=== PATIENT | female | born 1955 | race African-American/Black ===

== ENCOUNTER 2016-08-22 20:55 | Emergency (ER) | payer MEDICARE, MEDICAID ==
[~2016-08-22] VITALS: Ht 160 cm; Wt 65.8 kg
[~2016-08-22 20:55] MED LIST: AMLODIPINE 10MG PO; CINA30 PO; CINA60 PO; FOLI1CAP6 PO; FOLI1TAB63 PO; LEVO100T9 PO; LEVOTHYROXINE PO; LORA0.5T2 PO; LORAZEPAM 1 MG PO; NEPVIT PO; OMEPRAZOLE 20MG PO; PROP80CA2 PO; SEVE800T PO; VIAGRA PO; WARF5TAB73 PO
[2016-08-22] MEDS ORDERED: LORAZEPAM 2MG/ML CPJ IV ONE (23:15)
[2016-08-22 23:46] LABS: DIFFERENTIAL COMMENT 0; EOSINOPHILS % 2.2 % (0.0-5.0); HEMATOCRIT. 30.1 % (36.0-48.0); HEMOGLOBIN. 10.1 g/dL (12.0-16.0); MEAN CORPUSCULAR HEMOGLOBIN 34.3 pg (28.0-32.0); MEAN CORPUSCULAR HGB CONC 33.6 g/dL (31.0-37.0); MEAN CORPUSCULAR VOLUME 102.2 fL (81.0-99.0); MEAN PLATELET VOLUME 7.9 fl (7.4-10.4); MONOCYTES % 13.6 % (2.0-8.0); NEUTROPHILS % 63.2 % (40.0-76.0); PLATELET 249 x1000/uL (130-400); RED BLOOD CELL COUNT 2.94 mill/uL (4.2-5.4); RED CELL DISTRIBUTION WIDTH 16.2 % (11.6-14.6); WHITE BLOOD COUNT 5.2 x1000/uL (4.5-11.0)
[2016-08-23 00:04] LABS: ALANINE AMINOTRANSFERASE 19 IU/L (13-61); ALBUMIN 3.5 g/dL (3.4-5.0); ANION GAP 16; CALCIUM 7.8 mg/dL (8.5-10.1); CARBON DIOXIDE 28 mEq/L (21-32); CHLORIDE 98 mEq/L (98-107); INDEX HEMOLYSI 1 (1-3); INDEX ICTERIC 1 (1-4); INDEX LIPEMIC 1 (1-3); TROPONIN I 0.04 ng/mL (0.00-0.04); UREA NITROGEN BLOOD 30 mg/dL (7-21); eGFR 5 mL/min (>60)
[2016-08-23] MEDS ORDERED: LORAZEPAM 1MG TABLET PO ONE (02:15)
[2016-08-23 04:27] VITALS: BP 146/68
== END 2016-08-23 04:45 | disposition home or self-care (01) ==
LOC: ER 20:56
DX: F41.9 Anxiety disorder, unspecified (principal); I12.9 Hypertensive chronic kidney disease with stage 1 through stage 4 chronic kidney disease, or unspecified chronic kidney disease; N18.9 Chronic kidney disease, unspecified; Z88.0 Allergy status to penicillin; Z88.8 Allergy status to other drugs, medicaments and biological substances; Z79.01 Long term (current) use of anticoagulants; Z79.899 Other long term (current) drug therapy
CPT/HCPCS: 36415; 71010; 80053; 84484; 85025; 93005; 96374; 99285; J2060

== ENCOUNTER 2016-08-28 10:59 | Emergency (ER) | payer MEDICARE, MEDICAID ==
[~2016-08-28] VITALS: Ht 170.2 cm; Wt 68.0 kg
[2016-08-28 12:29] LABS: BASOPHILS % 0.9 % (0.0-2.0); EOSINOPHILS % 2.1 % (0.0-5.0); HEMATOCRIT. 33.3 % (36.0-48.0); HEMOGLOBIN. 11.1 g/dL (12.0-16.0); MEAN CORPUSCULAR HEMOGLOBIN 34.2 pg (28.0-32.0); MEAN CORPUSCULAR HGB CONC 33.3 g/dL (31.0-37.0); MEAN CORPUSCULAR VOLUME 102.9 fL (81.0-99.0); MEAN PLATELET VOLUME 7.9 fl (7.4-10.4); MONOCYTES % 10.1 % (2.0-8.0); NEUTROPHILS % 68.9 % (40.0-76.0); PLATELET 246 x1000/uL (130-400); RED BLOOD CELL COUNT 3.24 mill/uL (4.2-5.4); RED CELL DISTRIBUTION WIDTH 17.1 % (11.6-14.6)
[2016-08-28 12:32] LABS: BG BASE EXCESS 0.4 mmol/L (-2.0-2.0); BG CARBOXYHEMOGLOBIN 0.1 % (0.5-1.5); BG DEOXYHEMOGLOBIN 2.3 % (0.0-5.0); BG FRACTION INSPIRED OXYGEN 21; BG HCO3 ACT 22.7 mmol/L (22.0-26.0); BG METHEMOGLOBIN 0.3 % (0.0-1.5); BG OXYGEN SATURATION 97.7 % (92.0-98.5); BG OXYHEMOGLOBIN 97.3 % (94.0-97.0); BG PCO2 29.5 mmHg (35.0-45.0); BG PH 7.505 (7.350-7.450); BG PO2 106.4 mmHg (75.0-100.0); BG SAMPLE SITE LEFT RADIAL; BG TOTAL HEMOGLOBIN 11.8 g/dL (12.0-18.0); BG VENT MODE ROOM AIR
[2016-08-28 12:34] LABS: INR 2.2
[2016-08-28 12:38] LABS: DIFFERENTIAL COMMENT 1
[2016-08-28 12:39] LABS: ALANINE AMINOTRANSFERASE 28 IU/L (13-61); ALBUMIN 3.9 g/dL (3.4-5.0); ANION GAP 18; CALCIUM 8.1 mg/dL (8.5-10.1); CARBON DIOXIDE 27 mEq/L (21-32); CHLORIDE 97 mEq/L (98-107); INDEX HEMOLYSI 1 (1-3); INDEX ICTERIC 1 (1-4); INDEX LIPEMIC 1 (1-3); UREA NITROGEN BLOOD 34 mg/dL (7-21); eGFR 5 mL/min (>60)
[2016-08-28 12:43] LABS: TROPONIN I 0.04 ng/mL (0.00-0.04)
[2016-08-28 12:54] LABS: NT PRO B-TYPE NATRIURETIC PEP 91056 pg/mL (5-125)
[2016-08-28 14:20] VITALS: BP 130/88
== END 2016-08-28 16:51 | disposition home or self-care (01) ==
LOC: ER 11:06
DX: F45.8 Other somatoform disorders (principal); Z79.899 Other long term (current) drug therapy; Z88.0 Allergy status to penicillin; Z88.8 Allergy status to other drugs, medicaments and biological substances; Z79.01 Long term (current) use of anticoagulants; I12.9 Hypertensive chronic kidney disease with stage 1 through stage 4 chronic kidney disease, or unspecified chronic kidney disease; N18.9 Chronic kidney disease, unspecified; Z99.2 Dependence on renal dialysis
CPT/HCPCS: 36415; 36600; 71010; 80053; 82375; 82805; 83880; 84484; 85025; 85610; 93005; 99285

== ENCOUNTER 2016-08-31 19:03 | Inpatient (IN) | payer MEDICARE, MEDICAID ==
[~2016-08-31] VITALS: Ht 160 cm; Wt 63.5 kg
[2016-08-31 20:45] LABS: BASOPHILS % 1.3 % (0.0-2.0); EOSINOPHILS % 2.4 % (0.0-5.0); HEMATOCRIT. 35.7 % (36.0-48.0); HEMOGLOBIN. 11.7 g/dL (12.0-16.0); LYMPHOCYTES % 15.9 % (20.0-50.0); MEAN CORPUSCULAR HEMOGLOBIN 34.5 pg (28.0-32.0); MEAN CORPUSCULAR HGB CONC 32.7 g/dL (31.0-37.0); MEAN CORPUSCULAR VOLUME 105.3 fL (81.0-99.0); MEAN PLATELET VOLUME 8.1 fl (7.4-10.4); MONOCYTES % 9.2 % (2.0-8.0); NEUTROPHILS % 71.2 % (40.0-76.0); PLATELET 275 x1000/uL (130-400); RED BLOOD CELL COUNT 3.39 mill/uL (4.2-5.4); RED CELL DISTRIBUTION WIDTH 18.7 % (11.6-14.6); WHITE BLOOD COUNT 4.3 x1000/uL (4.5-11.0)
[2016-08-31 20:51] LABS: CHLORIDE 97 mEq/L (98-107); INDEX HEMOLYSI 1 (1-3); INDEX ICTERIC 1 (1-4); INDEX LIPEMIC 1 (1-3)
[2016-08-31 20:52] LABS: INR 1.8; PROTHROMBIN TIME 19.1 sec
[2016-08-31 20:55] LABS: ALBUMIN 3.7 g/dL (3.4-5.0); ANION GAP 25; CARBON DIOXIDE 20 mEq/L (21-32); UREA NITROGEN BLOOD 66 mg/dL (7-21)
[2016-08-31 20:58] LABS: DIFFERENTIAL COMMENT 1
[2016-08-31 21:00] LABS: ALANINE AMINOTRANSFERASE 27 IU/L (13-61); TROPONIN I 0.02 ng/mL (0.00-0.04); eGFR 3 mL/min (>60)
[2016-08-31 21:07] LABS: LACTIC ACID 3.1 mmol/L (0.4-2.0)
[2016-09-01] VITALS (7 sets, daily range): BP systolic 109–145; BP diastolic 50–80
[2016-09-01] MEDS ORDERED: CLONIDINE 0.1MG TABLET PO PRN (00:45)
[2016-09-01] MEDS ORDERED: HYDROCODONE/ACETAMINOPHEN 5/325MG TABLET PO PRN (00:45)
[2016-09-01] MEDS ORDERED: ACETAMINOPHEN 650MG SUPP PR PRN (00:45)
[2016-09-01] MEDS ORDERED: ACETAMINOPHEN 325MG TABLET PO PRN (00:45)
[2016-09-01] MEDS ORDERED: ONDANSETRON HCL 4MG/2ML VIAL IV PRN (00:45)
[2016-09-01] MEDS ORDERED: NA PHOS,M-B/NA PHOS,DI-BA ENEMA 118ML PR PRN (00:45)
[2016-09-01] MEDS ORDERED: GUAIFENESIN 200MG/10ML SUGAR FREE UDC PO PRN (00:45)
[2016-09-01] MEDS ORDERED: DIPHENHYDRAMINE 50MG/ML VIAL IV PRN (00:45)
[2016-09-01] MEDS ORDERED: MAGNESIUM/ALUMINUM HYDROXIDE/SIMETHICONE 30ML UDC PO PRN (00:45)
[2016-09-01] MEDS ORDERED: IPRATROPIUM/ALBUTEROL 0.5-3(2.5)MG/3ML NEB INH PRN (00:45)
[2016-09-01] MEDS ORDERED: DOCUSATE SODIUM 100MG CAPSULE PO PRN (00:45)
[2016-09-01] MEDS ORDERED: REVATIO PO (05:26)
[2016-09-01] MEDS: SODIUM CHLORIDE 0.9% INJ 3ML FLUSH IVF SCH ×3 (06:33→23:34)
[2016-09-01 09:25] LABS: CREATINE KINASE MB FRACTION 4.7 ng/mL (0.5-3.6); TROPONIN I 0.02 ng/mL (0.00-0.04)
[2016-09-01] MEDS ORDERED: CYANOCOBALAMIN 1000MCG/ML VIAL IM SCH (12:45)
[2016-09-01] MEDS: LORAZEPAM 2MG/ML CPJ IV PRN ×2 (13:59→20:19)
[2016-09-01] MEDS: FOLIC ACID/VITAMIN B COMP W-C TABLET PO SCH (13:59)
[2016-09-01] MEDS: LEVOTHYROXINE SODIUM 125MCG TABLET PO SCH (13:59)
[2016-09-01] MEDS ORDERED: WARFARIN SODIUM 5MG TABLET PO SCH (18:00)
[2016-09-01 23:29] LABS: CREATINE KINASE MB FRACTION 4.3 ng/mL (0.5-3.6); TROPONIN I 0.04 ng/mL (0.00-0.04)
[2016-09-02] VITALS (7 sets, daily range): BP systolic 120–148; BP diastolic 65–88
[2016-09-02 05:28] LABS: INR 2.4; PROTHROMBIN TIME 24.7 sec
[2016-09-02 05:34] LABS: BASOPHILS % 1.2 % (0.0-2.0); EOSINOPHILS % 1.8 % (0.0-5.0); HEMATOCRIT. 33.9 % (36.0-48.0); HEMOGLOBIN. 11.1 g/dL (12.0-16.0); MEAN CORPUSCULAR HEMOGLOBIN 34.5 pg (28.0-32.0); MEAN CORPUSCULAR HGB CONC 32.7 g/dL (31.0-37.0); MEAN CORPUSCULAR VOLUME 105.4 fL (81.0-99.0); MONOCYTES % 10.4 % (2.0-8.0); NEUTROPHILS % 71.6 % (40.0-76.0); PLATELET 236 x1000/uL (130-400); RED BLOOD CELL COUNT 3.22 mill/uL (4.2-5.4); RED CELL DISTRIBUTION WIDTH 18.3 % (11.6-14.6); WHITE BLOOD COUNT 5.1 x1000/uL (4.5-11.0)
[2016-09-02 06:01] LABS: CHLORIDE 101 mEq/L (98-107); INDEX HEMOLYSI 2 (1-3); INDEX ICTERIC 1 (1-4); INDEX LIPEMIC 1 (1-3)
[2016-09-02] MEDS: LEVOTHYROXINE SODIUM 125MCG TABLET PO SCH (06:11)
[2016-09-02] MEDS: SODIUM CHLORIDE 0.9% INJ 3ML FLUSH IVF SCH ×3 (06:11→21:57)
[2016-09-02 06:15] LABS: ALANINE AMINOTRANSFERASE 26 IU/L (13-61); ALBUMIN 3.5 g/dL (3.4-5.0); ANION GAP 18; CALCIUM 8.1 mg/dL (8.5-10.1); CARBON DIOXIDE 23 mEq/L (21-32); HDL CHOLESTEROL 24 mg/dL (40-59); LDL CHOLESTEROL 80 mg/dL (5-100); TRIGLYCERIDE 118 mg/dL (0-150); UREA NITROGEN BLOOD 45 mg/dL (7-21); eGFR 4 mL/min (>60)
[2016-09-02 06:37] LABS: DIFFERENTIAL COMMENT 1
[2016-09-02 07:47] LABS: HEPATITIS B CORE AB IGM NEGATIVE; HEPATITIS B SURFACE AB 12.2 mIU/mL
[2016-09-02] MEDS: FOLIC ACID/VITAMIN B COMP W-C TABLET PO SCH (08:22)
[2016-09-02 09:42] LABS: INDEX HEMOLYSI 2 (1-3); INDEX ICTERIC 1 (1-4); INDEX LIPEMIC 1 (1-3); IRON 183 ug/dL (50-175); TOTAL IRON BINDING CAPACITY 231 ug/dL (250-450)
[2016-09-02] MEDS: LORAZEPAM 2MG/ML CPJ IV PRN (13:51)
[2016-09-02] MEDS ORDERED: WARFARIN SODIUM 2.5MG TABLET PO NR (18:00)
[2016-09-02] MEDS ORDERED: SERTRALINE HCL 25MG TABLET PO SCH (18:15)
[2016-09-03 04:00] VITALS: BP 115/78
[2016-09-03 05:50] LABS: BASOPHILS % 0.9 % (0.0-2.0); DIFFERENTIAL COMMENT 0; EOSINOPHILS % 1.6 % (0.0-5.0); HEMATOCRIT. 33.1 % (36.0-48.0); LYMPHOCYTES % 14.5 % (20.0-50.0); MEAN CORPUSCULAR HEMOGLOBIN 34.5 pg (28.0-32.0); MEAN CORPUSCULAR HGB CONC 33.2 g/dL (31.0-37.0); MEAN CORPUSCULAR VOLUME 103.9 fL (81.0-99.0); MEAN PLATELET VOLUME 8.1 fl (7.4-10.4); MONOCYTES % 9.6 % (2.0-8.0); NEUTROPHILS % 73.4 % (40.0-76.0); PLATELET 179 x1000/uL (130-400); RED BLOOD CELL COUNT 3.19 mill/uL (4.2-5.4); RED CELL DISTRIBUTION WIDTH 19.4 % (11.6-14.6); WHITE BLOOD COUNT 5.7 x1000/uL (4.5-11.0)
[2016-09-03 05:52] LABS: INR 1.9; PROTHROMBIN TIME 19.6 sec
[2016-09-03] MEDS: SODIUM CHLORIDE 0.9% INJ 3ML FLUSH IVF SCH (06:26)
[2016-09-03] MEDS: LEVOTHYROXINE SODIUM 125MCG TABLET PO SCH (06:26)
[2016-09-03 06:54] LABS: CALCIUM 8.5 mg/dL (8.5-10.1)
[2016-09-03 08:00] VITALS: BP 142/79
[2016-09-03] MEDS: FOLIC ACID/VITAMIN B COMP W-C TABLET PO SCH (08:37)
[2016-09-03 12:00] VITALS: BP 121/78
[2016-09-03] MEDS ORDERED: WARFARIN SODIUM 4MG TABLET PO NR (18:00)
== END 2016-09-03 15:25 | disposition home or self-care (01) | DRG 291 ==
LOC: ER 19:04 → 8WST 09-01 00:31
PROVIDERS: ADMIT Family Medicine; ATTEND Family Medicine
PROC: 5A1D60Z (ICD-10-PCS; principal; 2016-09-01)
DX: I13.2 Hypertensive heart and chronic kidney disease with heart failure and with stage 5 chronic kidney disease, or end stage renal disease (principal); N18.6 End stage renal disease; N25.81 Secondary hyperparathyroidism of renal origin; R18.8 Other ascites; E87.2 Acidosis; D63.8 Anemia in other chronic diseases classified elsewhere; E03.9 Hypothyroidism, unspecified; E53.8 Deficiency of other specified B group vitamins; F41.9 Anxiety disorder, unspecified; G25.81 Restless legs syndrome; I27.2 Other secondary pulmonary hypertension; I50.9 Heart failure, unspecified; Z99.2 Dependence on renal dialysis; G89.29 Other chronic pain; K74.60 Unspecified cirrhosis of liver; F32.9 Major depressive disorder, single episode, unspecified; I48.2 Chronic atrial fibrillation; E88.09 Other disorders of plasma-protein metabolism, not elsewhere classified; D53.9 Nutritional anemia, unspecified; F50.89 Other specified eating disorder; Z79.01 Long term (current) use of anticoagulants; Z88.0 Allergy status to penicillin; Z88.8 Allergy status to other drugs, medicaments and biological substances; Z79.899 Other long term (current) drug therapy
CPT/HCPCS: 36415; 71010; 74176; 80048; 80053; 80061; 82550; 82553; 82728; 83036; 83540; 83550; 83605; 84443; 84484; 85025; 85610; 86705; 86706; 93005; 93306; 96374; 99285; J1200; J2060; J3420; J7030

== ENCOUNTER 2016-11-01 11:27 | Inpatient (IN) | payer MEDICARE, MEDICAID ==
[~2016-11-01] VITALS: Ht 161.3 cm; Wt 67.6 kg
[~2016-11-01 11:27] MED LIST changes: -AMLODIPINE 10MG PO; -CINA30 PO; -LEVOTHYROXINE PO; -LORA0.5T2 PO; -NEPVIT PO; +REVATIO PO
[2016-11-01] MEDS ORDERED: NITROGLYCERIN OINT 1GM/INCH UDPKT TD ONE (13:00)
[2016-11-01] MEDS ORDERED: FUROSEMIDE 40MG/4ML VIAL IV ONE (13:00)
[2016-11-01 13:11] LABS: HEMATOCRIT. 31.9 % (36.0-48.0); HEMOGLOBIN. 10.6 g/dL (12.0-16.0); MEAN CORPUSCULAR HEMOGLOBIN 31.9 pg (28.0-32.0); MEAN CORPUSCULAR VOLUME 95.8 fL (81.0-99.0); MEAN PLATELET VOLUME 7.9 fl (7.4-10.4); PLATELET 278 x1000/uL (130-400); RED BLOOD CELL COUNT 3.33 mill/uL (4.2-5.4); RED CELL DISTRIBUTION WIDTH 17.3 % (11.6-14.6)
[2016-11-01 13:20] LABS: CARBON DIOXIDE 23 mEq/L (21-32); CHLORIDE 95 mEq/L (98-107); ETHANOL BLOOD < 10 mg/dL
[2016-11-01 13:26] LABS: D-DIMER 0.35 mg/L FEU (<0.50)
[2016-11-01 13:34] LABS: TROPONIN I 0.05 ng/mL (0.00-0.04)
[2016-11-01 13:58] LABS: PLATELET ESTIMATE NORMAL
[2016-11-01 14:01] LABS: BG CARBOXYHEMOGLOBIN 0.1 % (0.5-1.5); BG DEOXYHEMOGLOBIN 5.7 % (0.0-5.0); BG FRACTION INSPIRED OXYGEN 21; BG HCO3 ACT 22.8 mmol/L (22.0-26.0); BG OXYGEN SATURATION 94.3 % (92.0-98.5); BG OXYHEMOGLOBIN 94.2 % (94.0-97.0); BG PCO2 31.2 mmHg (35.0-45.0); BG PH 7.482 (7.350-7.450); BG PO2 70.1 mmHg (75.0-100.0); BG SAMPLE SITE RIGHT RADIAL; BG TOTAL HEMOGLOBIN 11.3 g/dL (12.0-18.0); BG VENT MODE ROOM AIR
[2016-11-01 14:07] LABS: INR 4.5
[2016-11-01] MEDS ORDERED: CEFTRIAXONE 1 G PREMIX 50 ML IV ONE (14:45)
[2016-11-01] MEDS ORDERED: AZITHROMYCIN 500 MG in DEXT 5% WATER 250 ML IV ONE (14:45)
[2016-11-01] MEDS ORDERED: NA PHOS,M-B/NA PHOS,DI-BA ENEMA 118ML PR PRN (15:00)
[2016-11-01] MEDS ORDERED: HYDROMORPHONE HCL/PF 2MG/ML CPJ IV PRN (15:00)
[2016-11-01] MEDS ORDERED: ENOXAPARIN 40MG/0.4ML SYR SUBCUT SCH (15:00)
[2016-11-01] MEDS ORDERED: CLONIDINE 0.1MG TABLET PO PRN (15:00)
[2016-11-01] MEDS ORDERED: LEVOFLOXACIN 500MG PREMIX 100 ML IV SCH (15:00)
[2016-11-01] MEDS ORDERED: ONDANSETRON HCL 4MG/2ML VIAL IV PRN (15:00)
[2016-11-01] MEDS ORDERED: GUAIFENESIN 200MG/10ML SUGAR FREE UDC PO PRN (15:00)
[2016-11-01] MEDS ORDERED: MAGNESIUM/ALUMINUM HYDROXIDE/SIMETHICONE 30ML UDC PO PRN (15:00)
[2016-11-01] MEDS ORDERED: METHYLPREDNISOLONE SOD SUCC 125 MG/2 ML VIAL IV SCH (15:00)
[2016-11-01] MEDS ORDERED: LORAZEPAM 2MG/ML CPJ IV PRN (15:00)
[2016-11-01] MEDS ORDERED: DIPHENHYDRAMINE 50MG/ML VIAL IV PRN (15:00)
[2016-11-01] MEDS ORDERED: ACETAMINOPHEN 325MG TABLET PO PRN (15:00)
[2016-11-01] MEDS ORDERED: DOCUSATE SODIUM 100MG CAPSULE PO PRN (15:00)
[2016-11-01] MEDS ORDERED: GUAIFENESIN/CODEINE 200-20MG/10ML UDC PO ONE (15:30)
[2016-11-01] MEDS ORDERED: IPRATROPIUM/ALBUTEROL 0.5-3(2.5)MG/3ML NEB HHN ONE (15:30)
[2016-11-01 16:00] VITALS: BP 112/72
[2016-11-01] MEDS ORDERED: ALPRAZOLAM 0.5 MG TABLET PO PRN (17:00)
[2016-11-01] MEDS ORDERED: MORPHINE SULFATE 2 MG/ML CPJ (NOT FOR IM USE) IV PRN (17:00)
[2016-11-01] MEDS: METHYLPREDNISOLONE SOD SUCC 40 MG/ML VIAL IV SCH (17:21)
[2016-11-01] MEDS ORDERED: AZITHROMYCIN 500 MG in DEXT 5% WATER 250 ML IV SCH (18:00)
[2016-11-01] MEDS ORDERED: LORAZEPAM 1MG TABLET PO PRN (18:15)
[2016-11-01 18:19] LABS: PHOSPHORUS 2.5 mg/dL (2.5-4.9)
[2016-11-01] MEDS ORDERED: LEVOFLOXACIN 500MG PREMIX 100 ML IV NR (18:30)
[2016-11-01] MEDS: CINACALCET HCL 30MG TABLET PO SCH (18:32)
[2016-11-01] MEDS: IPRATROPIUM/ALBUTEROL 0.5-3(2.5)MG/3ML NEB INH PRN (18:42)
[2016-11-01 20:00] VITALS: BP_SYST 123; BP_DIAS 57; BP_DIAS 67
[2016-11-01] MEDS: BUDESONIDE 0.5MG/2ML NEB HHN SCH (20:23)
[2016-11-01] MEDS: IPRATROPIUM/ALBUTEROL 0.5-3(2.5)MG/3ML NEB HHN SCH (20:23)
[2016-11-01] MEDS: SILDENAFIL CITRATE 20MG TABLET PO SCH (23:40)
[2016-11-02] VITALS: BP 109/60
[2016-11-02] MEDS: METHYLPREDNISOLONE SOD SUCC 40 MG/ML VIAL IV SCH ×3 (01:55→17:24)
[2016-11-02] MEDS ORDERED: AMIODARONE (02:31)
[2016-11-02] MEDS: IPRATROPIUM/ALBUTEROL 0.5-3(2.5)MG/3ML NEB HHN SCH ×4 (02:33→21:00)
[2016-11-02 04:00] VITALS: BP 101/70
[2016-11-02] MEDS: SILDENAFIL CITRATE 20MG TABLET PO SCH ×3 (06:36→22:17)
[2016-11-02 06:45] LABS: HEMATOCRIT. 31.3 % (36.0-48.0); HEMOGLOBIN. 10.3 g/dL (12.0-16.0); MEAN CORPUSCULAR HEMOGLOBIN 31.7 pg (28.0-32.0); MEAN PLATELET VOLUME 8.1 fl (7.4-10.4); PLATELET 282 x1000/uL (130-400); RED BLOOD CELL COUNT 3.26 mill/uL (4.2-5.4); RED CELL DISTRIBUTION WIDTH 17.4 % (11.6-14.6)
[2016-11-02 07:11] LABS: CHLORIDE 96 mEq/L (98-107)
[2016-11-02 07:14] LABS: INR 5.2
[2016-11-02 07:39] VITALS: BP 108/63
[2016-11-02 07:53] LABS: CARBON DIOXIDE 25 mEq/L (21-32); HDL CHOLESTEROL 36 mg/dL (40-59); LDL CHOLESTEROL 69 mg/dL (5-100); PHOSPHORUS 2.3 mg/dL (2.5-4.9); T4 FREE 1.93 ng/dL (0.76-1.46)
[2016-11-02] MEDS: BUDESONIDE 0.5MG/2ML NEB HHN SCH ×2 (08:54→20:59)
[2016-11-02] MEDS: CINACALCET HCL 30MG TABLET PO SCH (09:15)
[2016-11-02 11:44] VITALS: BP 100/57
[2016-11-02 11:50] LABS: PLATELET ESTIMATE NORMAL
[2016-11-02] MEDS: AZITHROMYCIN 500 MG in DEXT 5% WATER 250 ML IV SCH (14:09)
[2016-11-02] MEDS ORDERED: OMEP20CA10 PO (15:45)
[2016-11-02] MEDS: OMEPRAZOLE 20MG CAPSULE EXTENDED RELEASE PO SCH (17:24)
[2016-11-02] MEDS: SEVELAMER CARBONATE 800 MG TABLET PO SCH (17:28)
[2016-11-02 20:00] VITALS: BP 117/73
[2016-11-03] VITALS: BP 112/69
[2016-11-03] MEDS: IPRATROPIUM/ALBUTEROL 0.5-3(2.5)MG/3ML NEB HHN SCH ×5 (02:26→19:59)
[2016-11-03 04:00] VITALS: BP 117/67
[2016-11-03] MEDS: OMEPRAZOLE 20MG CAPSULE EXTENDED RELEASE PO SCH (06:30)
[2016-11-03] MEDS: SILDENAFIL CITRATE 20MG TABLET PO SCH ×3 (06:30→22:25)
[2016-11-03] MEDS: LEVOTHYROXINE SODIUM 100MCG TABLET PO SCH (06:31)
[2016-11-03] MEDS: BUDESONIDE 0.5MG/2ML NEB HHN SCH ×2 (07:15→19:59)
[2016-11-03 08:00] VITALS: BP 112/61
[2016-11-03] MEDS: PREDNISONE 20MG TABLET PO SCH (08:19)
[2016-11-03] MEDS: CINACALCET HCL 30MG TABLET PO SCH (08:19)
[2016-11-03] MEDS: FOLIC ACID/VITAMIN B COMP W-C TABLET PO SCH (08:20)
[2016-11-03 12:00] VITALS: BP 98/56
[2016-11-03] MEDS: AZITHROMYCIN 500 MG in DEXT 5% WATER 250 ML IV SCH (13:49)
[2016-11-03 15:45] VITALS: BP 98/56
[2016-11-03] MEDS ORDERED: LEVOFLOXACIN 250MG PREMIX 50 ML IV SCH (17:00)
[2016-11-03] MEDS: SEVELAMER CARBONATE 800 MG TABLET PO SCH (17:16)
[2016-11-03] MEDS: FAMOTIDINE 20MG TABLET PO SCH (17:17)
[2016-11-03 20:00] VITALS: BP 111/61
[2016-11-04] VITALS: BP 105/63
[2016-11-04] MEDS: IPRATROPIUM/ALBUTEROL 0.5-3(2.5)MG/3ML NEB HHN SCH ×3 (02:58→20:30)
[2016-11-04 04:00] VITALS: BP 130/78
[2016-11-04] MEDS: LEVOTHYROXINE SODIUM 100MCG TABLET PO SCH (06:09)
[2016-11-04] MEDS: SILDENAFIL CITRATE 20MG TABLET PO SCH ×3 (06:10→21:33)
[2016-11-04] MEDS: FAMOTIDINE 20MG TABLET PO SCH ×3 (06:10→17:13)
[2016-11-04 06:43] LABS: HEMOGLOBIN. 11.3 g/dL (12.0-16.0); MEAN CORPUSCULAR HEMOGLOBIN 31.9 pg (28.0-32.0); MEAN CORPUSCULAR VOLUME 96.4 fL (81.0-99.0); PLATELET 340 x1000/uL (130-400); RED BLOOD CELL COUNT 3.53 mill/uL (4.2-5.4); RED CELL DISTRIBUTION WIDTH 17.8 % (11.6-14.6)
[2016-11-04 07:17] LABS: PROTHROMBIN TIME 20.7 sec
[2016-11-04 08:00] VITALS: BP 105/62
[2016-11-04] MEDS: PREDNISONE 20MG TABLET PO SCH (09:32)
[2016-11-04] MEDS: FOLIC ACID/VITAMIN B COMP W-C TABLET PO SCH (09:32)
[2016-11-04] MEDS: CINACALCET HCL 30MG TABLET PO SCH (09:33)
[2016-11-04 12:00] VITALS: BP 112/65
[2016-11-04] MEDS: AZITHROMYCIN 250 MG TABLET PO SCH (13:24)
[2016-11-04 14:27] LABS: PLATELET ESTIMATE NORMAL
[2016-11-04 16:00] VITALS: BP 113/73
[2016-11-04] MEDS: SEVELAMER CARBONATE 800 MG TABLET PO SCH (17:04)
[2016-11-04] MEDS ORDERED: WARFARIN SODIUM 4MG TABLET PO SCH (18:00)
[2016-11-04 20:00] VITALS: BP 114/65
[2016-11-04] MEDS ORDERED: BUDESONIDE 0.5MG/2ML NEB ONE (20:19)
[2016-11-04] MEDS: BUDESONIDE 0.5MG/2ML NEB HHN SCH (20:30)
[2016-11-05] VITALS: BP 122/75
[2016-11-05] MEDS: IPRATROPIUM/ALBUTEROL 0.5-3(2.5)MG/3ML NEB HHN SCH ×3 (01:06→13:37)
[2016-11-05 04:00] VITALS: BP 129/80
[2016-11-05 06:26] LABS: HEMATOCRIT. 35.1 % (36.0-48.0); HEMOGLOBIN. 11.4 g/dL (12.0-16.0); MEAN CORPUSCULAR HEMOGLOBIN 31.7 pg (28.0-32.0); MEAN CORPUSCULAR VOLUME 97.1 fL (81.0-99.0); MEAN PLATELET VOLUME 7.8 fl (7.4-10.4); PLATELET 333 x1000/uL (130-400); RED BLOOD CELL COUNT 3.62 mill/uL (4.2-5.4); RED CELL DISTRIBUTION WIDTH 17.4 % (11.6-14.6)
[2016-11-05] MEDS: FAMOTIDINE 20MG TABLET PO SCH ×2 (06:29→12:45)
[2016-11-05] MEDS: LEVOTHYROXINE SODIUM 100MCG TABLET PO SCH (06:29)
[2016-11-05] MEDS: SILDENAFIL CITRATE 20MG TABLET PO SCH ×2 (06:30→14:00)
[2016-11-05 06:32] LABS: INR 1.6; PROTHROMBIN TIME 16.4 sec
[2016-11-05 07:31] VITALS: BP 121/79
[2016-11-05] MEDS: CINACALCET HCL 30MG TABLET PO SCH ×2 (09:00→09:29)
[2016-11-05] MEDS: FOLIC ACID/VITAMIN B COMP W-C TABLET PO SCH (09:28)
[2016-11-05] MEDS: AZITHROMYCIN 250 MG TABLET PO SCH (09:29)
[2016-11-05] MEDS: PREDNISONE 20MG TABLET PO SCH (09:35)
[2016-11-05] MEDS: IPRATROPIUM/ALBUTEROL 0.5-3(2.5)MG/3ML NEB INH PRN (17:56)
[2016-11-05 18:45] VITALS: BP 145/63
[2016-11-05 20:00] VITALS: BP 118/77
[2016-11-05 20:25] LABS: PLATELET ESTIMATE NORMAL
[2016-11-05] MEDS ORDERED: DOXERCALCIFEROL 0.5MCG CAPSULE PO SCH (21:00)
[2016-11-05] MEDS ORDERED: EPOETIN ALFA 4000UNITS/ML VIAL SUBCUT SCH (21:00)
== END 2016-11-05 20:20 | disposition home or self-care (01) | DRG 177 ==
LOC: ER 12:55 → 8WST 14:54
PROVIDERS: ADMIT Internal Medicine; ATTEND Internal Medicine
PROC: 5A1D60Z (ICD-10-PCS; principal; 2016-11-03)
DX: J69.0 Pneumonitis due to inhalation of food and vomit (principal); J96.01 Acute respiratory failure with hypoxia; N18.6 End stage renal disease; I13.2 Hypertensive heart and chronic kidney disease with heart failure and with stage 5 chronic kidney disease, or end stage renal disease; D68.9 Coagulation defect, unspecified; E46 Unspecified protein-calorie malnutrition; I42.9 Cardiomyopathy, unspecified; N25.81 Secondary hyperparathyroidism of renal origin; I48.92 Unspecified atrial flutter; I50.9 Heart failure, unspecified; Z99.2 Dependence on renal dialysis; D53.9 Nutritional anemia, unspecified; D63.8 Anemia in other chronic diseases classified elsewhere; E03.9 Hypothyroidism, unspecified; E53.8 Deficiency of other specified B group vitamins; E78.5 Hyperlipidemia, unspecified; F32.9 Major depressive disorder, single episode, unspecified; G89.29 Other chronic pain; F41.9 Anxiety disorder, unspecified; I48.0 Paroxysmal atrial fibrillation; L68.0 Hirsutism; F50.89 Other specified eating disorder; E87.8 Other disorders of electrolyte and fluid balance, not elsewhere classified; J20.9 Acute bronchitis, unspecified; K21.9 Gastro-esophageal reflux disease without esophagitis; K58.9 Irritable bowel syndrome, unspecified; T45.515A Adverse effect of anticoagulants, initial encounter; Z79.01 Long term (current) use of anticoagulants; Z98.42 Cataract extraction status, left eye; Z88.0 Allergy status to penicillin; Z88.8 Allergy status to other drugs, medicaments and biological substances; Z79.899 Other long term (current) drug therapy; Z98.51 Tubal ligation status; Z68.26 Body mass index [BMI] 26.0-26.9, adult
CPT/HCPCS: 36415; 36600; 71010; 71020; 80048; 80053; 80061; 80069; 82375; 82805; 83605; 83735; 83880; 83970; 84100; 84439; 84443; 84484; 85025; 85379; 85610; 87040; 93005; 93306; 93970; 94640; 94760; 96365; 96375; 99285; G0482; J0456; J0696; J0885; J1940; J1956; J2920; J7030; J7060; J7512; J7620; J7626

== ENCOUNTER 2018-05-07 06:46 | Day surgery (SDC) | payer MEDICARE, MEDICAID ==
[~2018-05-07 06:46] MED LIST changes: +ALBUL INH; +AMI2 PO; +AMLO2.5T45 PO; +BENZ200C52 PO; +CINA30 PO; -CINA60 PO; +FLUT1BLS3 IH; -FOLI1CAP6 PO; -FOLI1TAB63 PO; -LEVO100T9 PO; +LEVO125T8 PO; -LORAZEPAM 1 MG PO; -OMEPRAZOLE 20MG PO; +PROP20TA7 PO; -PROP80CA2 PO; +PVCXPC PO; +REV20 PO; -REVATIO PO; -SEVE800T PO; -VIAGRA PO; +WARF2.5T83 PO; -WARF5TAB73 PO
[2018-05-07] MEDS ORDERED: FAMO20TA8 PO (07:52)
[2018-05-07] MEDS ORDERED: LORA-250 PO (07:52)
[2018-05-07] MEDS ORDERED: VIAG25 PO (07:52)
[2018-05-07] MEDS ORDERED: REN800 PO (07:52)
[2018-05-07 07:56] LABS: HEMATOCRIT. 31.2 % (36.0-48.0); MEAN CORPUSCULAR HEMOGLOBIN 35.8 pg (28.0-32.0); MEAN CORPUSCULAR VOLUME 101.8 fL (81.0-99.0); MEAN PLATELET VOLUME 8.7 fl (7.4-10.4); PLATELET 222 x1000/uL (130-400); RED BLOOD CELL COUNT 3.07 mill/uL (4.2-5.4); RED CELL DISTRIBUTION WIDTH 14.4 % (11.6-14.6)
[2018-05-07 08:03] LABS: INR 1.3; PARTIAL THROMBOPLASTIN TIME 29.9 sec (23.4-31.0); PROTHROMBIN TIME 13.4 sec (9.1-11.1)
[2018-05-07] MEDS ORDERED: FENTANYL CITRATE/PF 50MCG/ML 2ML VIAL ONE ×2 (08:27→08:58)
[2018-05-07] MEDS ORDERED: MIDAZOLAM HCL 2 MG/2 ML VIAL ONE ×2 (08:27→08:56)
[2018-05-07] MEDS ORDERED: LIDOCAINE HCL 1% 20ML VIAL (Pyxis) INJ ONE (08:28)
[2018-05-07] MEDS ORDERED: IODIXANOL 320MG/ML 100 ML BOTTLE IV ONE (08:28)
[2018-05-07] MEDS ORDERED: ONDANSETRON HCL 4MG/2ML INJ IV PRN ×2 (09:30→16:15)
[2018-05-07] MEDS ORDERED: ACETAMINOPHEN 325MG TABLET PO PRN (09:30)
[2018-05-07 09:51] LABS: PLATELET ESTIMATE NORMAL
[2018-05-07] MEDS ORDERED: LORAZEPAM 2MG/ML CPJ IV ONE (13:45)
== END 2018-05-07 15:35 | disposition home or self-care (01) ==
LOC: CCL 06:46
PROVIDERS: ATTEND Specialist
DX: I25.10 Atherosclerotic heart disease of native coronary artery without angina pectoris (principal); J44.9 Chronic obstructive pulmonary disease, unspecified; E03.9 Hypothyroidism, unspecified; I13.10 Hypertensive heart and chronic kidney disease without heart failure, with stage 1 through stage 4 chronic kidney disease, or unspecified chronic kidney disease; N18.9 Chronic kidney disease, unspecified; I27.20 Pulmonary hypertension, unspecified; Z79.01 Long term (current) use of anticoagulants; Z79.899 Other long term (current) drug therapy
CPT/HCPCS: 36415; 73560; 73600; 80048; 85025; 85610; 85730; 93460; 99152; 99153; C1760; C1887; J1644; J2060; J2250; J3010; J3490; Q9967; C1769; C1893; G0500

== ENCOUNTER → 2018-09-29 | Outpatient (CLI) | payer MEDICARE, MEDICAID ==
[~2018-09-29] MED LIST changes: -AMI2 PO; -BENZ200C52 PO; +FAMO20TA8 PO; +LORA-250 PO; -PVCXPC PO; +REN800 PO; +VIAG25 PO
== END | disposition home or self-care (01) ==
LOC: RAD 10:23
PROVIDERS: ATTEND Internal Medicine Critical Care Medicine
DX: J44.9 Chronic obstructive pulmonary disease, unspecified (principal)
CPT/HCPCS: 71046

== ENCOUNTER → 2019-05-13 | Day surgery (SDC) | payer MEDICARE, MEDICAID ==
[~2019-05-13] VITALS: Ht 160 cm; Wt 71.7 kg
[2019-05-13] VITALS (11 sets, daily range): BP systolic 125–146; BP diastolic 45–72
[~2019-05-13] MED LIST changes: +AMIO100T4 PO; +APIX2.5T PO; +FENTANYL CITRATE/PF 50MCG/ML 2ML VIAL IV SCH; +FENTANYL CITRATE/PF 50MCG/ML 2ML VIAL ONE; +IOHEXOL-300 100 ML BOTTLE ONE; +LIDOCAINE HCL 1% 20ML VIAL (Pyxis) INJ ONE; +SODIUM BICARBONATE 4% (2.4MEQ) 5ML VIAL IV ONE; +[UNRECOGNIZED DRUG - CODE] MC
[2019-05-13 10:25] LABS: BASOPHILS % 1.4 % (0.0-2.0); EOSINOPHILS % 4.1 % (0.0-5.0); HEMATOCRIT. 35.8 % (36.0-48.0); HEMOGLOBIN. 12.3 g/dL (12.0-16.0); LYMPHOCYTES % 21.9 % (20.0-50.0); MEAN CORPUSCULAR HEMOGLOBIN 35.7 pg (28.0-32.0); MEAN CORPUSCULAR VOLUME 103.9 fL (81.0-99.0); MEAN PLATELET VOLUME 8.6 fl (7.4-10.4); MONOCYTES % 13.7 % (2.0-8.0); NEUTROPHILS % 58.9 % (40.0-76.0); PLATELET 232 x1000/uL (130-400); RED BLOOD CELL COUNT 3.45 mill/uL (4.2-5.4); RED CELL DISTRIBUTION WIDTH 14.4 % (11.6-14.6)
[2019-05-13 10:35] LABS: INR 1.1; PARTIAL THROMBOPLASTIN TIME 26.6 sec (23.4-31.0); PROTHROMBIN TIME 11.1 sec (9.6-11.0)
== END | disposition home or self-care (01) ==
LOC: RAD 09:00
PROVIDERS: ATTEND Specialist
DX: N18.6 End stage renal disease (principal); Z79.899 Other long term (current) drug therapy; Z88.0 Allergy status to penicillin; Z88.8 Allergy status to other drugs, medicaments and biological substances; Z82.49 Family history of ischemic heart disease and other diseases of the circulatory system; Z83.3 Family history of diabetes mellitus
CPT/HCPCS: 36415; 36902; 36907; 82947; 84132; 85025; 85610; 85651; 85730; 99152; 99153; C1725; C1766; C1769; C1887; J1644; J3010; J3490; Q9967; 36901; G0500

== ENCOUNTER 2019-05-28 12:55 | Inpatient (IN) | payer MEDICARE, MEDICAID ==
[~2019-05-28] VITALS: Ht 160 cm; Wt 73.1 kg
[~2019-05-28 12:55] MED LIST changes: -AMIO100T4 PO; -APIX2.5T PO; -FENTANYL CITRATE/PF 50MCG/ML 2ML VIAL IV SCH; -FENTANYL CITRATE/PF 50MCG/ML 2ML VIAL ONE; -IOHEXOL-300 100 ML BOTTLE ONE; -LIDOCAINE HCL 1% 20ML VIAL (Pyxis) INJ ONE; -SODIUM BICARBONATE 4% (2.4MEQ) 5ML VIAL IV ONE; -[UNRECOGNIZED DRUG - CODE] MC
[2019-05-28 15:49] LABS: HEMATOCRIT. 35.1 % (36.0-48.0); HEMOGLOBIN. 12.2 g/dL (12.0-16.0); MEAN CORPUSCULAR HEMOGLOBIN 35.5 pg (28.0-32.0); MEAN CORPUSCULAR VOLUME 102.5 fL (81.0-99.0); MEAN PLATELET VOLUME 8.7 fl (7.4-10.4); PLATELET 211 x1000/uL (130-400); RED BLOOD CELL COUNT 3.43 mill/uL (4.2-5.4); RED CELL DISTRIBUTION WIDTH 14.4 % (11.6-14.6)
[2019-05-28 16:01] LABS: CHLORIDE 96 mEq/L (98-107)
[2019-05-28] MEDS ORDERED: TRAMADOL 50MG TABLET PO ONE (16:15)
[2019-05-28 17:09] LABS: PLATELET ESTIMATE NORMAL
[2019-05-28 22:00] VITALS: BP 128/48
[2019-05-28] MEDS ORDERED: IPRATROPIUM/ALBUTEROL 0.5-3(2.5)MG/3ML NEB NEB PRN (22:30)
[2019-05-28] MEDS ORDERED: MAGNESIUM/ALUMINUM HYDROXIDE/SIMETHICONE 30ML UDC PO PRN (22:30)
[2019-05-28] MEDS ORDERED: ONDANSETRON HCL 4MG/2ML INJ IV PRN (22:30)
[2019-05-28] MEDS ORDERED: GUAIFENESIN/CODEINE 100-10MG/5ML UDC PO PRN (22:30)
[2019-05-28] MEDS ORDERED: DIPHENHYDRAMINE 50MG/ML VIAL IV PRN (22:30)
[2019-05-28] MEDS ORDERED: BISACODYL 10MG SUPP PR PRN (22:30)
[2019-05-28] MEDS ORDERED: MIDODRINE HCL 5MG TABLET PO SCH (23:30)
[2019-05-29] VITALS: BP 105/47
[2019-05-29] MEDS: LORAZEPAM 1MG TABLET PO PRN ×2 (01:41→21:51)
[2019-05-29] MEDS: ACETAMINOPHEN 325MG TABLET PO PRN ×3 (01:42→21:13)
[2019-05-29 04:00] VITALS: BP 118/54
[2019-05-29] MEDS ORDERED: AMIO100T4 PO (04:40)
[2019-05-29] MEDS ORDERED: APIX2.5T PO (04:42)
[2019-05-29] MEDS: SODIUM CHLORIDE 0.9% INJ 3ML FLUSH IVF SCH ×3 (06:58→21:45)
[2019-05-29] MEDS: LEVOTHYROXINE SODIUM 125MCG TABLET PO SCH (06:59)
[2019-05-29] MEDS: SILDENAFIL CITRATE 20MG TABLET PO SCH ×3 (06:59→21:45)
[2019-05-29] MEDS: CALCIUM ACETATE 667MG CAPSULE PO SCH ×3 (08:18→18:16)
[2019-05-29] MEDS: CINACALCET HCL 30MG TABLET PO SCH (08:19)
[2019-05-29] MEDS: PROPRANOLOL HCL 10MG TABLET PO SCH ×2 (08:20→21:45)
[2019-05-29] MEDS: AMIODARONE HCL 200 MG TABLET PO SCH (08:21)
[2019-05-29] MEDS: AMLODIPINE 2.5MG TABLET PO SCH (08:21)
[2019-05-29] MEDS: DOCUSATE SODIUM 250MG CAPSULE PO SCH (08:23)
[2019-05-29] MEDS: APIXABAN 2.5 MG TABLET PO SCH ×2 (08:24→18:17)
[2019-05-29] MEDS: BUDESONIDE 0.5MG/2ML NEB HHN SCH ×2 (08:30→20:32)
[2019-05-29] MEDS ORDERED: PROPRANOLOL HCL 20MG TABLET PO SCH (09:00)
[2019-05-29 12:00] VITALS: BP 99/35
[2019-05-29] MEDS ORDERED: ALBUMIN HUMAN 25GM/100ML (25%) IV PRN (13:00)
[2019-05-29] MEDS ORDERED: MIDODRINE HCL 5MG TABLET PO NR (14:45)
[2019-05-29 16:00] VITALS: BP 125/52
[2019-05-30] MEDS: SODIUM CHLORIDE 0.9% INJ 3ML FLUSH IVF SCH ×2 (06:13→15:16)
[2019-05-30] MEDS: SILDENAFIL CITRATE 20MG TABLET PO SCH ×2 (06:15→14:00)
[2019-05-30] MEDS ORDERED: ALBUMIN HUMAN 25GM/100ML (25%) IV PRN (07:15)
[2019-05-30] MEDS ORDERED: MIDODRINE HCL 5MG TABLET PO SCH (07:30)
[2019-05-30] MEDS: BUDESONIDE 0.5MG/2ML NEB HHN SCH (07:39)
[2019-05-30] MEDS: LEVOTHYROXINE SODIUM 125MCG TABLET PO SCH (07:57)
[2019-05-30] MEDS: CALCIUM ACETATE 667MG CAPSULE PO SCH ×3 (07:57→17:13)
[2019-05-30 08:00] VITALS: BP 118/44
[2019-05-30] MEDS: DOCUSATE SODIUM 250MG CAPSULE PO SCH (08:00)
[2019-05-30] MEDS: APIXABAN 2.5 MG TABLET PO SCH ×2 (08:00→17:11)
[2019-05-30] MEDS: AMIODARONE HCL 200 MG TABLET PO SCH (08:00)
[2019-05-30] MEDS: CINACALCET HCL 30MG TABLET PO SCH (08:00)
[2019-05-30] MEDS: AMLODIPINE 2.5MG TABLET PO SCH (08:06)
[2019-05-30] MEDS: PROPRANOLOL HCL 10MG TABLET PO SCH (08:08)
[2019-05-30] MEDS: LORAZEPAM 1MG TABLET PO PRN (11:39)
[2019-05-30 12:00] VITALS: BP 137/44
[2019-05-30] MEDS ORDERED: [UNRECOGNIZED DRUG - CODE] MC (12:04)
[2019-05-30 16:00] VITALS: BP 133/75
[2019-05-30 16:20] VITALS: BP 133/75
[2019-05-30] MEDS: ACETAMINOPHEN 325MG TABLET PO PRN (18:23)
== END 2019-05-30 19:05 | disposition home or self-care (01) | DRG 312 ==
LOC: ER 12:55 → 7WST 18:39 → ENRESERV 21:09 → 7WST 05-29 00:59
PROVIDERS: ADMIT Internal Medicine; ATTEND Internal Medicine
PROC: 5A1D70Z Performance of Urinary Filtration, Intermittent, Less than 6 Hours Per Day (ICD-10-PCS; principal; 2019-05-29)
PROC: 5A1D70Z Performance of Urinary Filtration, Intermittent, Less than 6 Hours Per Day (ICD-10-PCS; 2019-05-30)
DX: I95.3 Hypotension of hemodialysis (principal); N18.6 End stage renal disease; I48.20 Chronic atrial fibrillation, unspecified; N25.81 Secondary hyperparathyroidism of renal origin; I12.0 Hypertensive chronic kidney disease with stage 5 chronic kidney disease or end stage renal disease; E03.9 Hypothyroidism, unspecified; E87.8 Other disorders of electrolyte and fluid balance, not elsewhere classified; I25.10 Atherosclerotic heart disease of native coronary artery without angina pectoris; I27.20 Pulmonary hypertension, unspecified; I48.0 Paroxysmal atrial fibrillation; J44.9 Chronic obstructive pulmonary disease, unspecified; K58.9 Irritable bowel syndrome, unspecified; F41.9 Anxiety disorder, unspecified; K21.9 Gastro-esophageal reflux disease without esophagitis; Z79.01 Long term (current) use of anticoagulants; Z82.49 Family history of ischemic heart disease and other diseases of the circulatory system; Z86.718 Personal history of other venous thrombosis and embolism; Z98.51 Tubal ligation status; Z99.2 Dependence on renal dialysis; Z88.0 Allergy status to penicillin; Z88.8 Allergy status to other drugs, medicaments and biological substances
CPT/HCPCS: 36415; 71045; 83880; 84443; 84484; 93005; 93306; 99285; J7620; J7626; P9047

== ENCOUNTER → 2019-07-15 | Day surgery (SDC) | payer MEDICARE, MEDICAID ==
[~2019-07-15] MED LIST changes: -ALBUL INH; +AMIO100T4 PO; +APIX2.5T PO; -FAMO20TA8 PO; -FLUT1BLS3 IH; -VIAG25 PO; -WARF2.5T83 PO; +[UNRECOGNIZED DRUG - CODE] MC
== END | disposition home or self-care (01) ==
LOC: ANGIO 10:00
PROVIDERS: ATTEND Specialist
DX: N18.6 End stage renal disease (principal); Z79.899 Other long term (current) drug therapy; Z82.49 Family history of ischemic heart disease and other diseases of the circulatory system; Z83.3 Family history of diabetes mellitus; Z88.0 Allergy status to penicillin; Z88.8 Allergy status to other drugs, medicaments and biological substances

== ENCOUNTER 2020-03-23 07:49 | Inpatient (IN) | payer MEDICARE, MEDICAID ==
[~2020-03-23] VITALS: Ht 160 cm; Wt 68.0 kg
[2020-03-23 04:00] VITALS: BP 117/67
[2020-03-23] MEDS ORDERED: ALTEPLASE 2MG/VIAL ITC NR (09:00)
[2020-03-23] MEDS ORDERED: CLINDAMYCIN 900 MG PREMIX 50 ML IV NR (09:00)
[2020-03-23 09:01] LABS: BASOPHILS % 0.4 % (0.0-2.0); HEMATOCRIT. 31.9 % (36.0-48.0); LYMPHOCYTES % 16.2 % (20.0-50.0); MEAN CORPUSCULAR HEMOGLOBIN 35.4 pg (28.0-32.0); MEAN CORPUSCULAR VOLUME 103.2 fL (81.0-99.0); MEAN PLATELET VOLUME 8.8 fl (7.4-10.4); NEUTROPHILS % 70.4 % (40.0-76.0); PLATELET 220 x1000/uL (130-400); RED BLOOD CELL COUNT 3.09 mill/uL (4.2-5.4); RED CELL DISTRIBUTION WIDTH 16.5 % (11.6-14.6)
[2020-03-23 09:08] LABS: CHLORIDE 101 mEq/L (98-107)
[2020-03-23 09:12] LABS: INR 1.1
[2020-03-23] MEDS ORDERED: HEPARIN 1,000 UNITS PREMIX 0 ML IV ONE (09:36)
[2020-03-23] MEDS ORDERED: HEPARIN 1000 UNITS/ML 10ML ONE (09:37)
[2020-03-23] MEDS ORDERED: LIDOCAINE HCL 1% 20ML VIAL (Pyxis) INJ ONE (09:37)
[2020-03-23] MEDS ORDERED: SODIUM BICARBONATE 4% (2.4MEQ) 5ML VIAL IV ONE (09:37)
[2020-03-23] MEDS ORDERED: IOHEXOL-300 100 ML BOTTLE ONE (09:38)
[2020-03-23] MEDS ORDERED: CLINDAMYCIN 600MG PREMIX 50 ML IV SCH (09:45)
[2020-03-23] MEDS ORDERED: DEXTROSE 50% WATER 50ML SYRINGE IV ONE (10:00)
[2020-03-23] MEDS ORDERED: SODIUM BICARBONATE 8.4% 1 MEQ/ML 50ML SYR IV ONE (10:00)
[2020-03-23] MEDS ORDERED: CALCIUM GLUCONATE 1,000 MG in DEXT 5% WATER 100 ML IV ONE (10:00)
[2020-03-23] MEDS ORDERED: INSULIN REGULAR (HUMULIN R) 300UNITS/3ML IV ONE (10:00)
[2020-03-23] MEDS ORDERED: ALBUTEROL (0.083%) 2.5MG/3ML NEB HHN ONE (10:00)
[2020-03-23 12:35] VITALS: BP 112/35
[2020-03-23 13:00] VITALS: BP 112/35
[2020-03-23 16:00] VITALS: BP 129/47
[2020-03-23] MEDS ORDERED: ONDANSETRON HCL 4MG/2ML INJ IV PRN (16:15)
[2020-03-23] MEDS ORDERED: IPRATROPIUM/ALBUTEROL 0.5-3(2.5)MG/3ML NEB NEB PRN (16:15)
[2020-03-23] MEDS ORDERED: ACETAMINOPHEN 650MG SUPP PR PRN (16:15)
[2020-03-23] MEDS ORDERED: DIPHENHYDRAMINE 50MG/ML VIAL IV PRN (16:15)
[2020-03-23] MEDS ORDERED: MORPHINE SULFATE 2 MG/ML CPJ (NOT FOR IM USE) IV PRN (16:15)
[2020-03-23] MEDS ORDERED: MAGNESIUM/ALUMINUM HYDROXIDE/SIMETHICONE 30ML UDC PO PRN (16:15)
[2020-03-23] MEDS ORDERED: NA PHOS,M-B/NA PHOS,DI-BA ENEMA 118ML PR PRN (16:15)
[2020-03-23] MEDS: FAMOTIDINE 20MG/2ML VIAL IV SCH (17:00)
[2020-03-23 20:00] VITALS: BP 111/39
[2020-03-23] MEDS: LORAZEPAM 2MG/ML CPJ IV PRN (21:26)
[2020-03-24] VITALS (25 sets, daily range): BP systolic 105–149; BP diastolic 30–90
[2020-03-24] MEDS ORDERED: CLINDAMYCIN 600MG PREMIX 50 ML IV SCH (07:15)
[2020-03-24] MEDS ORDERED: ALTEPLASE 2MG/VIAL ITC SCH (07:15)
[2020-03-24 07:24] LABS: CHLORIDE 101 mEq/L (98-107)
[2020-03-24 07:34] LABS: LDL CHOLESTEROL 91 mg/dL (5-100)
[2020-03-24 07:36] LABS: HDL CHOLESTEROL 50 mg/dL (40-59); T4 FREE 1.48 ng/dL (0.76-1.46)
[2020-03-24] MEDS ORDERED: SODIUM BICARBONATE 4% (2.4MEQ) 5ML VIAL IV ONE (08:06)
[2020-03-24] MEDS ORDERED: LIDOCAINE HCL 1% 20ML VIAL (Pyxis) INJ ONE (08:06)
[2020-03-24] MEDS ORDERED: HEPARIN 1000 UNITS/ML 10ML ONE (08:06)
[2020-03-24] MEDS ORDERED: IOHEXOL-300 100 ML BOTTLE ONE (08:21)
[2020-03-24] MEDS: LORAZEPAM 2MG/ML CPJ IV PRN ×2 (08:53→14:51)
[2020-03-24] MEDS ORDERED: FENTANYL CITRATE/PF 50MCG/ML 2ML VIAL ONE (09:02)
[2020-03-24] MEDS ORDERED: HEPARIN 5000 UNITS/ML VIAL IV ONE (09:30)
[2020-03-24] MEDS ORDERED: FENTANYL CITRATE/PF 50MCG/ML 2ML VIAL IV ONE (10:00)
[2020-03-24 11:50] LABS: BASOPHILS % 1.2 % (0.0-2.0); EOSINOPHILS % 3.3 % (0.0-5.0); HEMATOCRIT. 32.8 % (36.0-48.0); HEMOGLOBIN. 11.1 g/dL (12.0-16.0); LYMPHOCYTES % 12.7 % (20.0-50.0); MEAN CORPUSCULAR HEMOGLOBIN 34.9 pg (28.0-32.0); MEAN CORPUSCULAR VOLUME 103.3 fL (81.0-99.0); MEAN PLATELET VOLUME 8.9 fl (7.4-10.4); MONOCYTES % 9.7 % (2.0-8.0); NEUTROPHILS % 73.1 % (40.0-76.0); PLATELET 187 x1000/uL (130-400); RED BLOOD CELL COUNT 3.17 mill/uL (4.2-5.4); RED CELL DISTRIBUTION WIDTH 16.6 % (11.6-14.6)
[2020-03-24] MEDS: FAMOTIDINE 20MG/2ML VIAL IV SCH (17:00)
== END 2020-03-24 20:40 | disposition home or self-care (01) | DRG 673 ==
LOC: ER 07:49 → 6WST 10:35 → ENRESERV 11:23
PROVIDERS: ADMIT Ophthalmology; ATTEND Ophthalmology
PROC: 3E03317 Introduction of Other Thrombolytic into Peripheral Vein, Percutaneous Approach (ICD-10-PCS; principal; 2020-03-23)
PROC: 037Y3ZZ Dilation of Upper Artery, Percutaneous Approach (ICD-10-PCS; 2020-03-23)
PROC: 06H033Z Insertion of Infusion Device into Inferior Vena Cava, Percutaneous Approach (ICD-10-PCS; 2020-03-23)
PROC: B5191ZA Fluoroscopy of Inferior Vena Cava using Low Osmolar Contrast, Guidance (ICD-10-PCS; 2020-03-23)
PROC: B549ZZA Ultrasonography of Inferior Vena Cava, Guidance (ICD-10-PCS; 2020-03-23)
PROC: 5A1D70Z Performance of Urinary Filtration, Intermittent, Less than 6 Hours Per Day (ICD-10-PCS; 2020-03-24)
DX: T82.41XA Breakdown (mechanical) of vascular dialysis catheter, initial encounter (principal); N18.6 End stage renal disease; I42.9 Cardiomyopathy, unspecified; N25.81 Secondary hyperparathyroidism of renal origin; I13.2 Hypertensive heart and chronic kidney disease with heart failure and with stage 5 chronic kidney disease, or end stage renal disease; I50.22 Chronic systolic (congestive) heart failure; T82.818A Embolism due to vascular prosthetic devices, implants and grafts, initial encounter; D64.9 Anemia, unspecified; E87.5 Hyperkalemia; I27.20 Pulmonary hypertension, unspecified; I48.91 Unspecified atrial fibrillation; J44.9 Chronic obstructive pulmonary disease, unspecified; Y71.2 Prosthetic and other implants, materials and accessory cardiovascular devices associated with adverse incidents; F41.9 Anxiety disorder, unspecified; E03.9 Hypothyroidism, unspecified; Y83.2 Surgical operation with anastomosis, bypass or graft as the cause of abnormal reaction of the patient, or of later complication, without mention of misadventure at the time of the procedure; Z98.51 Tubal ligation status; Z99.2 Dependence on renal dialysis; Z88.0 Allergy status to penicillin; Z79.899 Other long term (current) drug therapy; K58.9 Irritable bowel syndrome, unspecified; F50.89 Other specified eating disorder
CPT/HCPCS: 36415; 36556; 36905; 71045; 76937; 77001; 80053; 80061; 84132; 84439; 84443; 85025; 87426; 93005; 93306; 93970; 94640; 97162; 99152; 99153; 99291; C1725; C1752; C1766; C1769; C1887; J0610; J1642; J1644; J1815; J2060; J2997; J3010; J3490; J7060; Q9967; G0500

== ENCOUNTER → 2020-07-19 | Outpatient (CLI) | payer MEDICARE, MEDICAID | END | disposition home or self-care (01) | LOC: LAB 08:38 | PROVIDERS: ATTEND Specialist | DX: Z01.812 Encounter for preprocedural laboratory examination (principal); R05 Cough; Z20.822 Contact with and (suspected) exposure to COVID-19 | CPT/HCPCS: 87426 ==

== ENCOUNTER → 2020-07-20 | Day surgery (SDC) | payer MEDICARE, MEDICAID | END | disposition home or self-care (01) | LOC: RAD 09:35 | PROVIDERS: ATTEND Specialist | DX: R92.8 Other abnormal and inconclusive findings on diagnostic imaging of breast (principal); Z79.899 Other long term (current) drug therapy; Z98.890 Other specified postprocedural states | CPT/HCPCS: 19083; 76641 ==

== ENCOUNTER 2020-08-23 07:47 | Inpatient (IN) | payer MEDICARE, MEDICAID ==
[~2020-08-23] VITALS: Ht 162.6 cm; Wt 76.7 kg
[2020-08-23] VITALS (22 sets, daily range): BP systolic 115–184; BP diastolic 48–99
[2020-08-23 08:56] LABS: BASOPHILS % 1.5 % (0.0-2.0); EOSINOPHILS % 2.8 % (0.0-5.0); HEMATOCRIT. 28.3 % (36.0-48.0); HEMOGLOBIN. 9.7 g/dL (12.0-16.0); LYMPHOCYTES % 7.6 % (20.0-50.0); MEAN CORPUSCULAR HEMOGLOBIN 35.5 pg (28.0-32.0); MEAN CORPUSCULAR VOLUME 104.2 fL (81.0-99.0); MEAN PLATELET VOLUME 9.4 fl (7.4-10.4); MONOCYTES % 7.6 % (2.0-8.0); NEUTROPHILS % 80.5 % (40.0-76.0); PLATELET 242 x1000/uL (130-400); RED BLOOD CELL COUNT 2.72 mill/uL (4.2-5.4); RED CELL DISTRIBUTION WIDTH 15.1 % (11.6-14.6)
[2020-08-23 09:01] LABS: CHLORIDE 99 mEq/L (98-107)
[2020-08-23 10:00] LABS: INR 1.2; PROTHROMBIN TIME 13.1 sec (9.6-11.0)
[2020-08-23] MEDS ORDERED: CLINDAMYCIN 600MG PREMIX 50 ML IV NR (10:45)
[2020-08-23] MEDS ORDERED: CALCIUM GLUCONATE 100MG/ML 10ML VIAL IV ONE (10:45)
[2020-08-23] MEDS ORDERED: FUROSEMIDE 40MG/4ML VIAL IVP ONE (10:45)
[2020-08-23] MEDS ORDERED: HEPARIN 1000 UNITS/ML 10ML ONE (10:56)
[2020-08-23] MEDS ORDERED: LIDOCAINE HCL 1% 20ML VIAL (Pyxis) INJ ONE (10:56)
[2020-08-23] MEDS ORDERED: IOHEXOL-300 100 ML BOTTLE ONE (10:56)
[2020-08-23] MEDS ORDERED: FENTANYL CITRATE/PF 50MCG/ML 2ML VIAL ONE (11:59)
[2020-08-23] MEDS ORDERED: ACETAMINOPHEN 325MG TABLET PO PRN (12:00)
[2020-08-23] MEDS ORDERED: ONDANSETRON HCL 4MG/2ML INJ IV PRN (12:00)
[2020-08-23] MEDS ORDERED: FENTANYL CITRATE/PF 50MCG/ML 2ML VIAL IV ONE (14:30)
[2020-08-23] MEDS: AMLODIPINE 2.5MG TABLET PO SCH (21:36)
[2020-08-23] MEDS: PROPRANOLOL HCL 10MG TABLET PO SCH (22:00)
[2020-08-23] MEDS: LORAZEPAM 1MG TABLET PO SCH (22:04)
[2020-08-24] VITALS: BP 97/63
[2020-08-24 04:00] VITALS: BP 116/55
[2020-08-24] MEDS ORDERED: LEVOTHYROXINE SODIUM 125MCG TABLET PO SCH (06:00)
[2020-08-24 06:40] LABS: BASOPHILS % 1.3 % (0.0-2.0); EOSINOPHILS % 3.2 % (0.0-5.0); HEMATOCRIT. 24.7 % (36.0-48.0); HEMOGLOBIN. 8.6 g/dL (12.0-16.0); LYMPHOCYTES % 16.2 % (20.0-50.0); MEAN CORPUSCULAR HEMOGLOBIN 35.8 pg (28.0-32.0); MEAN CORPUSCULAR VOLUME 102.7 fL (81.0-99.0); MEAN PLATELET VOLUME 9.1 fl (7.4-10.4); MONOCYTES % 13.7 % (2.0-8.0); NEUTROPHILS % 65.6 % (40.0-76.0); PLATELET 214 x1000/uL (130-400); RED CELL DISTRIBUTION WIDTH 15.5 % (11.6-14.6)
[2020-08-24] MEDS: LORAZEPAM 1MG TABLET PO SCH (08:49)
[2020-08-24] MEDS: PROPRANOLOL HCL 10MG TABLET PO SCH (08:52)
[2020-08-24] MEDS ORDERED: SILDENAFIL CITRATE 20MG TABLET PO SCH (09:00)
[2020-08-24] MEDS ORDERED: CINACALCET HCL 30MG TABLET PO SCH (09:00)
[2020-08-24] MEDS ORDERED: APIXABAN 2.5 MG TABLET PO SCH (09:00)
[2020-08-24] MEDS ORDERED: LORAZEPAM 1MG TABLET PO SCH (09:00)
[2020-08-24] MEDS: AMLODIPINE 2.5MG TABLET PO SCH (09:00)
[2020-08-24] MEDS ORDERED: SEVELAMER CARBONATE 800 MG TABLET PO SCH (09:00)
[2020-08-24] MEDS ORDERED: AMIODARONE HCL 200 MG TABLET PO SCH (09:00)
[2020-08-24] MEDS ORDERED: PROPRANOLOL HCL 10MG TABLET PO SCH (09:00)
[2020-08-24 09:56] VITALS: BP 116/56
[2020-08-24] MEDS ORDERED: EPOETIN ALFA-EPBX 10,000 UNIT/ML VIAL SUBCUT SCH (21:00)
== END 2020-08-24 10:15 | disposition home or self-care (01) | DRG 252 ==
LOC: ER 07:47 → 6WST 13:31 → ENRESERV 14:09
PROVIDERS: ADMIT Ophthalmology; ATTEND Ophthalmology
PROC: 05CY3ZZ Extirpation of Matter from Upper Vein, Percutaneous Approach (ICD-10-PCS; principal; 2020-08-23)
PROC: 05753ZZ Dilation of Right Subclavian Vein, Percutaneous Approach (ICD-10-PCS; 2020-08-23)
PROC: 037Y3ZZ Dilation of Upper Artery, Percutaneous Approach (ICD-10-PCS; 2020-08-23)
PROC: B31H1ZZ Fluoroscopy of Right Upper Extremity Arteries using Low Osmolar Contrast (ICD-10-PCS; 2020-08-23)
PROC: B5161ZZ Fluoroscopy of Right Subclavian Vein using Low Osmolar Contrast (ICD-10-PCS; 2020-08-23)
PROC: B5181ZZ Fluoroscopy of Superior Vena Cava using Low Osmolar Contrast (ICD-10-PCS; 2020-08-23)
PROC: B3111ZZ Fluoroscopy of Right Brachiocephalic-Subclavian Artery using Low Osmolar Contrast (ICD-10-PCS; 2020-08-23)
PROC: 5A1D70Z Performance of Urinary Filtration, Intermittent, Less than 6 Hours Per Day (ICD-10-PCS; 2020-08-23)
PROC: 5A1D70Z Performance of Urinary Filtration, Intermittent, Less than 6 Hours Per Day (ICD-10-PCS; 2020-08-24)
DX: T82.868A Thrombosis due to vascular prosthetic devices, implants and grafts, initial encounter (principal); N18.6 End stage renal disease; I50.23 Acute on chronic systolic (congestive) heart failure; I87.1 Compression of vein; E87.1 Hypo-osmolality and hyponatremia; I13.2 Hypertensive heart and chronic kidney disease with heart failure and with stage 5 chronic kidney disease, or end stage renal disease; T82.856A Stenosis of peripheral vascular stent, initial encounter; E87.5 Hyperkalemia; J44.9 Chronic obstructive pulmonary disease, unspecified; Z20.822 Contact with and (suspected) exposure to COVID-19; D63.8 Anemia in other chronic diseases classified elsewhere; Y84.1 Kidney dialysis as the cause of abnormal reaction of the patient, or of later complication, without mention of misadventure at the time of the procedure; K21.9 Gastro-esophageal reflux disease without esophagitis; F41.9 Anxiety disorder, unspecified; Y83.2 Surgical operation with anastomosis, bypass or graft as the cause of abnormal reaction of the patient, or of later complication, without mention of misadventure at the time of the procedure; Y92.89 Other specified places as the place of occurrence of the external cause; Z84.1 Family history of disorders of kidney and ureter; Z98.51 Tubal ligation status; Z99.2 Dependence on renal dialysis; Z88.0 Allergy status to penicillin; Z88.8 Allergy status to other drugs, medicaments and biological substances; Z79.899 Other long term (current) drug therapy; Z79.1 Long term (current) use of non-steroidal anti-inflammatories (NSAID)
CPT/HCPCS: 36415; 36905; 36907; 71045; 76937; 80048; 80053; 83880; 84484; 85025; 87426; 93005; 99152; 99153; 99291; C1725; C1766; C1769; C2630; J0610; J1644; J1940; J3010; J3490; Q9967; G0500

== ENCOUNTER 2021-02-14 05:29 | Inpatient (IN) | payer MEDICARE, MEDICAID ==
[~2021-02-14] VITALS: Ht 160 cm; Wt 72.2 kg
[~2021-02-14 05:29] MED LIST changes: +AMI2 PO; -AMIO100T4 PO; +AMLO10TA80 PO; -AMLO2.5T45 PO; +LINA290C PO; +LORA-249 PO; -LORA-250 PO; -[UNRECOGNIZED DRUG - CODE] MC
[2021-02-14 06:28] LABS: BASOPHILS % 0.2 % (0.0-2.0); EOSINOPHILS % 2.6 % (0.0-5.0); HEMATOCRIT. 29.8 % (36.0-48.0); HEMOGLOBIN. 9.8 g/dL (12.0-16.0); LYMPHOCYTES % 7.3 % (20.0-50.0); MEAN CORPUSCULAR HEMOGLOBIN 31.5 pg (28.0-32.0); MEAN CORPUSCULAR VOLUME 95.7 fL (81.0-99.0); MEAN PLATELET VOLUME 8.5 fl (7.4-10.4); MONOCYTES % 8.2 % (2.0-8.0); NEUTROPHILS % 81.7 % (40.0-76.0); PLATELET 251 x1000/uL (130-400); RED BLOOD CELL COUNT 3.11 mill/uL (4.2-5.4); RED CELL DISTRIBUTION WIDTH 16.1 % (11.6-14.6)
[2021-02-14 06:31] LABS: CHLORIDE 99 mEq/L (98-107)
[2021-02-14 06:44] LABS: INR 1.3; PROTHROMBIN TIME 13.5 sec (9.6-11.0)
[2021-02-14] MEDS ORDERED: CALCIUM CHLORIDE 1GM/10ML SYR IV ONE (07:15)
[2021-02-14] MEDS ORDERED: DEXTROSE 50% WATER 50ML SYRINGE IV ONE (07:15)
[2021-02-14] MEDS ORDERED: ALBUTEROL (0.083%) 2.5MG/3ML NEB HHN ONE (07:15)
[2021-02-14] MEDS ORDERED: INSULIN REGULAR (HUMULIN R) 300UNITS/3ML VIAL IV ONE (07:15)
[2021-02-14] MEDS ORDERED: SODIUM BICARBONATE 8.4% 1 MEQ/ML 50ML SYR IV ONE (07:15)
[2021-02-14] MEDS: AMLODIPINE 10MG TABLET PO SCH (12:00)
[2021-02-14] MEDS ORDERED: ENOXAPARIN 60MG/0.6ML SYR SUBCUT SCH (14:30)
[2021-02-14] MEDS: IPRATROPIUM/ALBUTEROL 0.5-3(2.5)MG/3ML NEB HHN PRN (20:03)
[2021-02-14] MEDS: SILDENAFIL CITRATE 20MG TABLET PO SCH (21:05)
[2021-02-14] MEDS: METOPROLOL TARTRATE 25MG TABLET PO SCH (21:42)
[2021-02-14 23:40] VITALS: BP 152/90
[2021-02-14] MEDS ORDERED: CINA60 PO (23:55)
[2021-02-15] VITALS (7 sets, daily range): BP systolic 126–186; BP diastolic 52–104
[2021-02-15] MEDS: LORAZEPAM 0.5MG TABLET PO PRN ×2 (00:37→20:03)
[2021-02-15] MEDS: SILDENAFIL CITRATE 20MG TABLET PO SCH ×3 (06:00→23:11)
[2021-02-15] MEDS ORDERED: ALTEPLASE 2MG/VIAL ITC ONE (06:45)
[2021-02-15] MEDS ORDERED: CLINDAMYCIN 600 MG in DEXTROSE 5% WATER 50 ML IV ONE (06:45)
[2021-02-15] MEDS: LEVOTHYROXINE SODIUM 125MCG TABLET PO SCH (06:55)
[2021-02-15] MEDS ORDERED: CLINDAMYCIN 600MG PREMIX 50 ML IV ONE (07:00)
[2021-02-15] MEDS: AMLODIPINE 10MG TABLET PO SCH (09:00)
[2021-02-15] MEDS: CINACALCET HCL 60MG TABLET PO SCH (09:00)
[2021-02-15] MEDS: METOPROLOL TARTRATE 25MG TABLET PO SCH ×2 (09:00→21:00)
[2021-02-15] MEDS ORDERED: SEVELAMER CARBONATE 800 MG TABLET PO SCH ×2 (09:00)
[2021-02-15 09:50] LABS: BASOPHILS % 0.9 % (0.0-2.0); EOSINOPHILS % 2.3 % (0.0-5.0); HEMATOCRIT. 29.2 % (36.0-48.0); HEMOGLOBIN. 9.6 g/dL (12.0-16.0); LYMPHOCYTES % 8.1 % (20.0-50.0); MEAN CORPUSCULAR HEMOGLOBIN 31.6 pg (28.0-32.0); MEAN PLATELET VOLUME 9.2 fl (7.4-10.4); MONOCYTES % 9.3 % (2.0-8.0); NEUTROPHILS % 79.4 % (40.0-76.0); PLATELET 232 x1000/uL (130-400); RED BLOOD CELL COUNT 3.04 mill/uL (4.2-5.4)
[2021-02-15] MEDS ORDERED: SODIUM POLYSTYRENE SULFONATE 15 G/60 ML BOT PO NR (12:30)
[2021-02-15] MEDS ORDERED: IOHEXOL-300 100 ML BOTTLE ONE (13:02)
[2021-02-15] MEDS ORDERED: HEPARIN 1000 UNITS/ML 10ML ONE (13:02)
[2021-02-15] MEDS ORDERED: LIDOCAINE HCL 1% 20ML VIAL (Pyxis) INJ ONE (13:02)
[2021-02-15 17:16] LABS: HEPATITIS B SURFACE ANTIGEN NEGATIVE
[2021-02-15] MEDS: ACETAMINOPHEN 325MG TABLET PO PRN (23:22)
[2021-02-16] VITALS (30 sets, daily range): BP systolic 130–171; BP diastolic 68–106
[2021-02-16] MEDS: SILDENAFIL CITRATE 20MG TABLET PO SCH ×3 (06:00→21:43)
[2021-02-16 06:18] LABS: BASOPHILS % 1.3 % (0.0-2.0); EOSINOPHILS % 2.7 % (0.0-5.0); HEMATOCRIT. 28.1 % (36.0-48.0); HEMOGLOBIN. 9.3 g/dL (12.0-16.0); MEAN CORPUSCULAR HEMOGLOBIN 31.2 pg (28.0-32.0); MEAN CORPUSCULAR VOLUME 94.3 fL (81.0-99.0); MEAN PLATELET VOLUME 8.9 fl (7.4-10.4); MONOCYTES % 13.5 % (2.0-8.0); NEUTROPHILS % 70.5 % (40.0-76.0); PLATELET 231 x1000/uL (130-400); RED BLOOD CELL COUNT 2.97 mill/uL (4.2-5.4); RED CELL DISTRIBUTION WIDTH 15.7 % (11.6-14.6)
[2021-02-16] MEDS: LEVOTHYROXINE SODIUM 125MCG TABLET PO SCH (06:21)
[2021-02-16] MEDS ORDERED: LIDOCAINE HCL 1% 20ML VIAL (Pyxis) INJ ONE (08:30)
[2021-02-16] MEDS ORDERED: HEPARIN 1000 UNITS/ML 10ML ONE (08:30)
[2021-02-16] MEDS ORDERED: IOHEXOL-300 100 ML BOTTLE ONE (08:30)
[2021-02-16] MEDS ORDERED: FENTANYL CITRATE/PF 50MCG/ML 2ML VIAL ONE ×2 (08:39→09:24)
[2021-02-16] MEDS: SEVELAMER CARBONATE 800 MG TABLET PO SCH (09:00)
[2021-02-16] MEDS ORDERED: FENTANYL CITRATE/PF 50MCG/ML 2ML VIAL IV ONE ×2 (09:15→09:30)
[2021-02-16] MEDS: LOSARTAN POTASSIUM 100 MG TABLET PO SCH ×2 (11:00→13:47)
[2021-02-16] MEDS: AMLODIPINE 10MG TABLET PO SCH (13:47)
[2021-02-16] MEDS: CINACALCET HCL 60MG TABLET PO SCH (13:47)
[2021-02-16] MEDS ORDERED: ALBU18HF2 IH (15:54)
[2021-02-16] MEDS: ENOXAPARIN 80MG/0.8ML SYR SUBCUT SCH (16:00)
[2021-02-16] MEDS ORDERED: APIXABAN 5 MG TABLET PO SCH (17:00)
[2021-02-16 20:51] LABS: HEPATITIS B SURFACE ANTIGEN NEGATIVE
[2021-02-16] MEDS ORDERED: EPOETIN ALFA-EPBX 10,000 UNIT/ML VIAL SUBCUT SCH (21:00)
[2021-02-16] MEDS: CARVEDILOL 3.125 MG TABLET PO SCH ×2 (21:00→21:43)
[2021-02-17] VITALS: BP 146/84
[2021-02-17] MEDS: SILDENAFIL CITRATE 20MG TABLET PO SCH ×3 (06:31→21:40)
[2021-02-17] MEDS: LEVOTHYROXINE SODIUM 125MCG TABLET PO SCH (06:31)
[2021-02-17 08:00] VITALS: BP 135/80
[2021-02-17] MEDS: CARVEDILOL 3.125 MG TABLET PO SCH ×2 (09:00→21:00)
[2021-02-17] MEDS: AMLODIPINE 10MG TABLET PO SCH (09:00)
[2021-02-17] MEDS: LOSARTAN POTASSIUM 100 MG TABLET PO SCH (09:00)
[2021-02-17] MEDS: IPRATROPIUM/ALBUTEROL 0.5-3(2.5)MG/3ML NEB HHN PRN (10:01)
[2021-02-17] MEDS: CINACALCET HCL 60MG TABLET PO SCH (10:18)
[2021-02-17] MEDS: SEVELAMER CARBONATE 800 MG TABLET PO SCH (10:19)
[2021-02-17 13:05] VITALS: BP 133/77
[2021-02-17] MEDS: ENOXAPARIN 80MG/0.8ML SYR SUBCUT SCH (16:00)
[2021-02-17 18:11] VITALS: BP 134/83
[2021-02-17 20:00] VITALS: BP 153/95
[2021-02-17] MEDS: ACETAMINOPHEN 325MG TABLET PO PRN (21:40)
[2021-02-17] MEDS: LORAZEPAM 0.5MG TABLET PO PRN (21:43)
[2021-02-18] VITALS: BP 151/89
[2021-02-18 04:00] VITALS: BP 146/85
[2021-02-18] MEDS: SILDENAFIL CITRATE 20MG TABLET PO SCH ×3 (06:11→21:17)
[2021-02-18] MEDS: LEVOTHYROXINE SODIUM 125MCG TABLET PO SCH (06:11)
[2021-02-18] MEDS: ACETAMINOPHEN 325MG TABLET PO PRN (07:48)
[2021-02-18 08:00] VITALS: BP 160/48
[2021-02-18] MEDS: LOSARTAN POTASSIUM 100 MG TABLET PO SCH (09:00)
[2021-02-18] MEDS: AMLODIPINE 10MG TABLET PO SCH (09:00)
[2021-02-18] MEDS: CARVEDILOL 3.125 MG TABLET PO SCH ×2 (09:00→21:00)
[2021-02-18] MEDS: SEVELAMER CARBONATE 800 MG TABLET PO SCH (09:49)
[2021-02-18] MEDS: CINACALCET HCL 60MG TABLET PO SCH (09:49)
[2021-02-18] MEDS ORDERED: DOCUSATE SODIUM 100MG CAPSULE PO PRN (11:30)
[2021-02-18 12:00] VITALS: BP 97/76
[2021-02-18] MEDS: LORAZEPAM 0.5MG TABLET PO PRN ×2 (14:17→22:55)
[2021-02-18 16:00] VITALS: BP 150/81
[2021-02-18] MEDS: ENOXAPARIN 80MG/0.8ML SYR SUBCUT SCH (16:00)
[2021-02-18] MEDS: ACETAMINOPHEN 500MG TABLET PO PRN (18:14)
[2021-02-18 20:00] VITALS: BP 157/61
[2021-02-18 21:01] LABS: HEPATITIS B SURFACE ANTIGEN NEGATIVE
[2021-02-19] VITALS (33 sets, daily range): BP systolic 132–172; BP diastolic 55–101
[2021-02-19] MEDS: LEVOTHYROXINE SODIUM 125MCG TABLET PO SCH (06:30)
[2021-02-19] MEDS: ACETAMINOPHEN 500MG TABLET PO PRN ×2 (06:30→16:27)
[2021-02-19] MEDS: SILDENAFIL CITRATE 20MG TABLET PO SCH ×3 (06:31→22:01)
[2021-02-19] MEDS: AMLODIPINE 10MG TABLET PO SCH (09:00)
[2021-02-19] MEDS: LOSARTAN POTASSIUM 100 MG TABLET PO SCH (09:00)
[2021-02-19] MEDS: CARVEDILOL 3.125 MG TABLET PO SCH ×2 (09:00→22:00)
[2021-02-19] MEDS ORDERED: CLINDAMYCIN 600MG PREMIX 50 ML IV NR (09:30)
[2021-02-19] MEDS ORDERED: IOHEXOL-300 100 ML BOTTLE ONE (09:34)
[2021-02-19] MEDS ORDERED: HEPARIN 1000 UNITS/ML 10ML ONE (09:35)
[2021-02-19] MEDS ORDERED: LIDOCAINE HCL 1% 20ML VIAL (Pyxis) INJ ONE (09:35)
[2021-02-19] MEDS ORDERED: FENTANYL CITRATE/PF 50MCG/ML 2ML VIAL ONE ×2 (09:53→11:01)
[2021-02-19] MEDS ORDERED: MIDAZOLAM HCL 2 MG/2 ML VIAL ONE (09:59)
[2021-02-19] MEDS ORDERED: HEPARIN 5000 UNITS/ML VIAL IV ONE (10:30)
[2021-02-19] MEDS ORDERED: IOHEXOL-300 50 ML BOTTLE IV ONE ×2 (10:39→10:59)
[2021-02-19] MEDS ORDERED: HEPARIN 5000 UNITS/ML VIAL IV SCH (10:45)
[2021-02-19] MEDS ORDERED: FENTANYL CITRATE/PF 50MCG/ML 2ML VIAL IV ONE (11:00)
[2021-02-19] MEDS ORDERED: MIDAZOLAM HCL 2 MG/2 ML VIAL IV ONE (11:00)
[2021-02-19] MEDS: SEVELAMER CARBONATE 800 MG TABLET PO SCH (12:15)
[2021-02-19] MEDS: CINACALCET HCL 60MG TABLET PO SCH (12:15)
[2021-02-19] MEDS ORDERED: AMLODIPINE 2.5MG TABLET PO SCH (13:30)
[2021-02-19] MEDS ORDERED: CARVEDILOL 3.125 MG TABLET PO SCH (13:30)
[2021-02-20] VITALS: BP 148/83
[2021-02-20] MEDS ORDERED: APIXABAN 2.5 MG TABLET PO SCH (09:00)
== END 2021-02-20 07:59 | disposition home or self-care (01) | DRG 252 ==
LOC: ER 06:12 → MICUSO 08:36 → EDBEDREQTM 08:38 → EDBEDREQ 08:38 → EDBEDREQTM 08:47 → 6WST 20:23
PROVIDERS: ADMIT Internal Medicine; ATTEND Internal Medicine
PROC: 02HV33Z Insertion of Infusion Device into Superior Vena Cava, Percutaneous Approach (ICD-10-PCS; 2021-02-15)
PROC: B518ZZA Fluoroscopy of Superior Vena Cava, Guidance (ICD-10-PCS; 2021-02-15)
PROC: B548ZZA Ultrasonography of Superior Vena Cava, Guidance (ICD-10-PCS; 2021-02-15)
PROC: 5A1D70Z Performance of Urinary Filtration, Intermittent, Less than 6 Hours Per Day (ICD-10-PCS; 2021-02-15)
PROC: 3E03317 Introduction of Other Thrombolytic into Peripheral Vein, Percutaneous Approach (ICD-10-PCS; 2021-02-16)
PROC: B5181ZZ Fluoroscopy of Superior Vena Cava using Low Osmolar Contrast (ICD-10-PCS; 2021-02-16)
PROC: B51W1ZZ Fluoroscopy of Dialysis Shunt/Fistula using Low Osmolar Contrast (ICD-10-PCS; 2021-02-16)
PROC: B3121ZZ Fluoroscopy of Left Subclavian Artery using Low Osmolar Contrast (ICD-10-PCS; 2021-02-16)
PROC: 5A1D70Z Performance of Urinary Filtration, Intermittent, Less than 6 Hours Per Day (ICD-10-PCS; 2021-02-17)
PROC: 057 Upper Veins, Dilation (ICD-10-PCS; principal; 2021-02-19)
PROC: 03CY0ZZ Extirpation of Matter from Upper Artery, Open Approach (ICD-10-PCS; 2021-02-19)
PROC: 5A1D70Z Performance of Urinary Filtration, Intermittent, Less than 6 Hours Per Day (ICD-10-PCS; 2021-02-19)
DX: T82.868A Thrombosis due to vascular prosthetic devices, implants and grafts, initial encounter (principal); N18.6 End stage renal disease; I50.23 Acute on chronic systolic (congestive) heart failure; E87.1 Hypo-osmolality and hyponatremia; I48.20 Chronic atrial fibrillation, unspecified; I42.9 Cardiomyopathy, unspecified; I13.2 Hypertensive heart and chronic kidney disease with heart failure and with stage 5 chronic kidney disease, or end stage renal disease; E87.5 Hyperkalemia; Y83.2 Surgical operation with anastomosis, bypass or graft as the cause of abnormal reaction of the patient, or of later complication, without mention of misadventure at the time of the procedure; I27.20 Pulmonary hypertension, unspecified; J44.9 Chronic obstructive pulmonary disease, unspecified; D64.9 Anemia, unspecified; E03.9 Hypothyroidism, unspecified; K21.9 Gastro-esophageal reflux disease without esophagitis; F41.9 Anxiety disorder, unspecified; Z20.822 Contact with and (suspected) exposure to COVID-19; E21.1 Secondary hyperparathyroidism, not elsewhere classified; Z99.2 Dependence on renal dialysis; Z79.01 Long term (current) use of anticoagulants; Z88.0 Allergy status to penicillin; Z88.8 Allergy status to other drugs, medicaments and biological substances; Z79.899 Other long term (current) drug therapy; Z79.890 Hormone replacement therapy; Y92.89 Other specified places as the place of occurrence of the external cause; Z98.51 Tubal ligation status; K58.9 Irritable bowel syndrome, unspecified; F50.89 Other specified eating disorder; Z68.28 Body mass index [BMI] 28.0-28.9, adult
CPT/HCPCS: 36415; 36556; 36902; 36905; 36907; 71045; 76937; 77001; 80048; 80053; 80061; 82962; 83735; 83880; 84484; 85025; 86705; 86709; 86803; 86850; 86900; 87340; 93005; 93306; 94640; 99152; 99153; 99291; C1725; C1752; C1766; C1769; C9803; J0885; J1644; J1650; J1815; J2250; J2997; J3010; J3490; Q9967; U0003; U0005; G0500

== ENCOUNTER 2021-05-29 07:05 | Emergency (ER) | payer MEDICARE, MEDICAID ==
[2021-05-29] VITALS (20 sets, daily range): BP systolic 119–137; BP diastolic 55–72
[~2021-05-29] VITALS: Ht 160 cm; Wt 63.0 kg
[~2021-05-29 07:05] MED LIST changes: +ALBU18HF2 IH; -AMI2 PO; -AMLO10TA80 PO; -CINA30 PO; +CINA60 PO; -PROP20TA7 PO
[2021-05-29] MEDS ORDERED: CLINDAMYCIN 600MG PREMIX 50 ML IV NR (09:30)
[2021-05-29 09:40] LABS: HEMOGLOBIN. 11.1 g/dL (12.0-16.0); MEAN CORPUSCULAR HEMOGLOBIN 32.1 pg (28.0-32.0); MEAN CORPUSCULAR VOLUME 98.6 fL (81.0-99.0); MEAN PLATELET VOLUME 8.3 fl (7.4-10.4); PLATELET 196 x1000/uL (130-400); RED BLOOD CELL COUNT 3.45 mill/uL (4.2-5.4); RED CELL DISTRIBUTION WIDTH 18.5 % (11.6-14.6)
[2021-05-29 09:47] LABS: CHLORIDE 98 mEq/L (98-107)
[2021-05-29] MEDS ORDERED: IOHEXOL-300 100 ML BOTTLE ONE (10:17)
[2021-05-29] MEDS ORDERED: LIDOCAINE HCL 1% 20ML VIAL (Pyxis) INJ ONE (10:17)
[2021-05-29] MEDS ORDERED: HEPARIN 1000 UNITS/ML 10ML ONE (10:18)
[2021-05-29 11:32] LABS: INR 1.2; PROTHROMBIN TIME 13.1 sec (9.6-11.0)
[2021-05-29 12:19] LABS: PLATELET ESTIMATE NORMAL
[2021-05-29] MEDS ORDERED: FENTANYL CITRATE/PF 50MCG/ML 2ML VIAL ONE (12:34)
[2021-05-29] MEDS ORDERED: FENTANYL CITRATE/PF 50MCG/ML 2ML VIAL IV ONE (13:15)
== END 2021-05-29 15:08 | disposition home or self-care (01) ==
LOC: ER 07:05
DX: I13.2 Hypertensive heart and chronic kidney disease with heart failure and with stage 5 chronic kidney disease, or end stage renal disease (principal); I48.91 Unspecified atrial fibrillation; N18.6 End stage renal disease; I50.9 Heart failure, unspecified; J44.9 Chronic obstructive pulmonary disease, unspecified; M79.89 Other specified soft tissue disorders; K21.9 Gastro-esophageal reflux disease without esophagitis; E03.9 Hypothyroidism, unspecified; F41.9 Anxiety disorder, unspecified; D64.9 Anemia, unspecified; Z99.2 Dependence on renal dialysis; Z88.0 Allergy status to penicillin; Z79.899 Other long term (current) drug therapy; Z98.51 Tubal ligation status
CPT/HCPCS: 36415; 36902; 36907; 80053; 85025; 85610; 87426; 93971; 96365; 96375; 99284; C1725; C1766; C1769; C1887; J1644; J3010; J3490; Q9967; 99152; 99153; G0500

== ENCOUNTER 2021-06-14 10:24 | Inpatient (IN) | payer MEDICARE, MEDICAID ==
[~2021-06-14] VITALS: Ht 157.5 cm; Wt 72.6 kg
[2021-06-14 12:11] LABS: EOSINOPHILS % 0.1 % (0.0-5.0); HEMATOCRIT. 35.6 % (36.0-48.0); HEMOGLOBIN. 11.6 g/dL (12.0-16.0); LYMPHOCYTES % 8.7 % (20.0-50.0); MEAN CORPUSCULAR HEMOGLOBIN 30.8 pg (28.0-32.0); MEAN CORPUSCULAR VOLUME 94.2 fL (81.0-99.0); MEAN PLATELET VOLUME 8.8 fl (7.4-10.4); MONOCYTES % 7.5 % (2.0-8.0); NEUTROPHILS % 82.7 % (40.0-76.0); PLATELET 195 x1000/uL (130-400); RED BLOOD CELL COUNT 3.78 mill/uL (4.2-5.4); RED CELL DISTRIBUTION WIDTH 17.1 % (11.6-14.6)
[2021-06-14 12:18] LABS: CHLORIDE 94 mEq/L (98-107)
[2021-06-15 05:55] VITALS: BP 144/83
[2021-06-15 05:56] VITALS: BP 144/83
[2021-06-15] MEDS ORDERED: METOPROLOL TARTRATE 50MG TABLET PO SCH (07:00)
[2021-06-15 08:00] VITALS: BP 159/49
[2021-06-15] MEDS ORDERED: MAGNESIUM/ALUMINUM HYDROXIDE/SIMETHICONE 30ML UDC PO PRN (10:45)
[2021-06-15] MEDS ORDERED: ONDANSETRON HCL 4MG/2ML INJ IV PRN (10:45)
[2021-06-15] MEDS ORDERED: GUAIFENESIN 200MG/10ML SUGAR FREE UDC PO PRN (10:45)
[2021-06-15] MEDS ORDERED: NA PHOS,M-B/NA PHOS,DI-BA ENEMA 118ML PR PRN (10:45)
[2021-06-15] MEDS ORDERED: MORPHINE SULFATE 2 MG/ML CPJ (NOT FOR IM USE) IV PRN (10:45)
[2021-06-15] MEDS ORDERED: ACETAMINOPHEN 650MG SUPP PR PRN (10:45)
[2021-06-15] MEDS ORDERED: HYDROCODONE/ACETAMINOPHEN 5/325MG TABLET PO PRN (10:45)
[2021-06-15] MEDS ORDERED: LORAZEPAM 0.5MG TABLET PO PRN (10:45)
[2021-06-15] MEDS ORDERED: HYDR-459 PO (11:09)
[2021-06-15] MEDS ORDERED: DILT180T11 PO (11:09)
[2021-06-15] MEDS ORDERED: DEXAMETHASONE 10 MG/ML VIAL IV SCH (11:15)
[2021-06-15 12:00] VITALS: BP 112/73
[2021-06-15 12:07] LABS: BG CARBOXYHEMOGLOBIN 0.3 % (0.5-1.5); BG DEOXYHEMOGLOBIN 5.5 % (0.0-5.0); BG FRACTION INSPIRED OXYGEN 21; BG HCO3 ACT 23.5 mmol/L (22.0-26.0); BG METHEMOGLOBIN 0.5 % (0.0-1.5); BG OXYGEN SATURATION 94.5 % (92.0-98.5); BG OXYHEMOGLOBIN 93.7 % (94.0-97.0); BG PCO2 34.1 mmHg (35.0-45.0); BG PH 7.456 (7.350-7.450); BG PO2 77.3 mmHg (75.0-100.0); BG SAMPLE SITE RIGHT RADIAL; BG TOTAL HEMOGLOBIN 11.7 g/dL (12.0-18.0); BG VENT MODE ROOM AIR
[2021-06-15] MEDS: AZITHROMYCIN 500 MG in DEXT 5% WATER 250 ML IV SCH (13:03)
[2021-06-15] MEDS: CEFTRIAXONE 1,000 MG in DEXTROSE 5% WATER 50 ML IV SCH (13:03)
[2021-06-15] MEDS: ALBUTEROL 6.7GM HFA INHALER ORI SCH ×3 (13:04→23:08)
[2021-06-15 16:00] VITALS: BP 118/68
[2021-06-15] MEDS: HYDROXYZINE 25MG TABLET PO SCH (17:35)
[2021-06-15 20:00] VITALS: BP 145/85
[2021-06-15] MEDS: HEPARIN 5000 UNITS/ML VIAL SUBCUT SCH ×2 (21:00→23:07)
[2021-06-15] MEDS: FAMOTIDINE 20MG TABLET PO SCH (21:17)
[2021-06-15 21:27] LABS: INR 1.2; PARTIAL THROMBOPLASTIN TIME 35.6 sec (23.4-31.0); PROTHROMBIN TIME 12.5 sec (9.6-11.0)
[2021-06-15 21:46] LABS: CREATINE KINASE MB FRACTION 1.5 ng/mL (0.5-3.6)
[2021-06-15 22:08] LABS: HEPATITIS B SURFACE ANTIGEN NEGATIVE
[2021-06-15 22:33] LABS: FERRITIN 2410 ng/mL (10-291)
[2021-06-15] MEDS: DIPHENHYDRAMINE 50MG/ML VIAL IV PRN (23:18)
[2021-06-16] VITALS: BP 140/80
[2021-06-16 01:10] LABS: CREATINE KINASE MB FRACTION 1.8 ng/mL (0.5-3.6)
[2021-06-16] MEDS: ALBUTEROL 6.7GM HFA INHALER ORI SCH ×4 (06:24→23:47)
[2021-06-16 08:00] VITALS: BP 131/78
[2021-06-16] MEDS: ACETAMINOPHEN 325MG TABLET PO PRN (08:22)
[2021-06-16] MEDS: HYDROXYZINE 25MG TABLET PO SCH ×3 (08:23→17:11)
[2021-06-16] MEDS: HEPARIN 5000 UNITS/ML VIAL SUBCUT SCH ×2 (08:24→08:36)
[2021-06-16] MEDS: DILTIAZEM HCL 180MG CAPSULE CD 24HR PO SCH (08:24)
[2021-06-16 08:31] LABS: CHLORIDE 95 mEq/L (98-107)
[2021-06-16 08:46] LABS: HDL CHOLESTEROL 40 mg/dL (40-59)
[2021-06-16 08:55] LABS: LDL CHOLESTEROL 93 mg/dL (5-100)
[2021-06-16 08:56] LABS: T4 FREE 0.91 ng/dL (0.76-1.46)
[2021-06-16 11:40] LABS: HEMATOCRIT. 35.2 % (36.0-48.0); HEMOGLOBIN. 11.7 g/dL (12.0-16.0); MEAN CORPUSCULAR HEMOGLOBIN 30.9 pg (28.0-32.0); MEAN PLATELET VOLUME 9.2 fl (7.4-10.4); PLATELET 213 x1000/uL (130-400); RED BLOOD CELL COUNT 3.78 mill/uL (4.2-5.4); RED CELL DISTRIBUTION WIDTH 17.1 % (11.6-14.6)
[2021-06-16 12:00] VITALS: BP 108/66
[2021-06-16 12:18] LABS: PLATELET ESTIMATE NORMAL
[2021-06-16] MEDS: AZITHROMYCIN 500 MG in DEXT 5% WATER 250 ML IV SCH (12:21)
[2021-06-16] MEDS: CEFTRIAXONE 1,000 MG in DEXTROSE 5% WATER 50 ML IV SCH (12:21)
[2021-06-16] MEDS ORDERED: NALOXONE HCL 0.4MG/ML VIAL IV PRN (15:45)
[2021-06-16 15:59] VITALS: BP 134/81
[2021-06-16] MEDS: APIXABAN 2.5 MG TABLET PO SCH (17:11)
[2021-06-16 20:00] VITALS: BP 134/81
[2021-06-16] MEDS: FAMOTIDINE 20MG TABLET PO SCH (20:26)
[2021-06-17] VITALS: BP 127/60
[2021-06-17 04:00] VITALS: BP 121/74
[2021-06-17] MEDS: ALBUTEROL 6.7GM HFA INHALER ORI SCH ×3 (05:55→17:56)
[2021-06-17 08:00] VITALS: BP 115/53
[2021-06-17] MEDS: HYDROXYZINE 25MG TABLET PO SCH ×3 (09:16→17:55)
[2021-06-17] MEDS: DILTIAZEM HCL 180MG CAPSULE CD 24HR PO SCH (09:16)
[2021-06-17] MEDS: DOCUSATE SODIUM 100MG CAPSULE PO PRN (09:16)
[2021-06-17] MEDS: APIXABAN 2.5 MG TABLET PO SCH ×2 (09:17→17:55)
[2021-06-17 12:00] VITALS: BP 116/54
[2021-06-17] MEDS: AZITHROMYCIN 500 MG in DEXT 5% WATER 250 ML IV SCH (12:48)
[2021-06-17] MEDS: CEFTRIAXONE 1,000 MG in DEXTROSE 5% WATER 50 ML IV SCH (12:48)
[2021-06-17 16:00] VITALS: BP 130/48
[2021-06-17] MEDS: ACETAMINOPHEN 325MG TABLET PO PRN (17:55)
[2021-06-17 20:00] VITALS: BP 159/88
[2021-06-17] MEDS: FAMOTIDINE 20MG TABLET PO SCH (20:37)
[2021-06-18] VITALS: BP 136/74
[2021-06-18] MEDS: ALBUTEROL 6.7GM HFA INHALER ORI SCH ×4 (00:38→17:12)
[2021-06-18 04:00] VITALS: BP 138/70
[2021-06-18 08:00] VITALS: BP 135/77
[2021-06-18] MEDS: APIXABAN 2.5 MG TABLET PO SCH ×2 (10:10→16:01)
[2021-06-18] MEDS: DILTIAZEM HCL 180MG CAPSULE CD 24HR PO SCH (10:12)
[2021-06-18] MEDS: HYDROXYZINE 25MG TABLET PO SCH ×3 (10:12→16:01)
[2021-06-18 12:00] VITALS: BP 156/77
[2021-06-18] MEDS: ACETAMINOPHEN 325MG TABLET PO PRN ×2 (12:54→21:22)
[2021-06-18] MEDS: CEFTRIAXONE 1,000 MG in DEXTROSE 5% WATER 50 ML IV SCH (12:55)
[2021-06-18 16:00] VITALS: BP 143/42
[2021-06-18] MEDS: AZITHROMYCIN 500 MG in DEXT 5% WATER 250 ML IV SCH (16:02)
[2021-06-18] MEDS: FAMOTIDINE 20MG TABLET PO SCH ×2 (21:00→21:20)
[2021-06-18] MEDS: CLONIDINE 0.1MG TABLET PO PRN ×2 (21:20→21:32)
[2021-06-19] VITALS: BP 129/66
[2021-06-19 04:00] VITALS: BP 140/73
[2021-06-19] MEDS: ALBUTEROL 6.7GM HFA INHALER ORI SCH ×4 (06:25→18:53)
[2021-06-19 08:00] VITALS: BP 145/75
[2021-06-19] MEDS: HYDROXYZINE 25MG TABLET PO SCH ×3 (08:53→18:53)
[2021-06-19] MEDS: APIXABAN 2.5 MG TABLET PO SCH ×2 (08:53→18:53)
[2021-06-19] MEDS: DILTIAZEM HCL 180MG CAPSULE CD 24HR PO SCH (08:53)
[2021-06-19 12:00] VITALS: BP 132/79
[2021-06-19] MEDS: ACETAMINOPHEN 325MG TABLET PO PRN (12:36)
[2021-06-19] MEDS: DOCUSATE SODIUM 100MG CAPSULE PO PRN (12:36)
[2021-06-19] MEDS: CEFTRIAXONE 1,000 MG in DEXTROSE 5% WATER 50 ML IV SCH (12:37)
[2021-06-19] MEDS: AZITHROMYCIN 500 MG in DEXT 5% WATER 250 ML IV SCH (13:46)
[2021-06-19 16:00] VITALS: BP 116/60
[2021-06-19 16:02] LABS: HEPATITIS B SURFACE ANTIGEN NEGATIVE
[2021-06-19 20:00] VITALS: BP 150/72
[2021-06-19 20:12] LABS: BASOPHILS % 0.9 % (0.0-2.0); EOSINOPHILS % 0.6 % (0.0-5.0); HEMATOCRIT. 32.1 % (36.0-48.0); HEMOGLOBIN. 10.7 g/dL (12.0-16.0); LYMPHOCYTES % 8.4 % (20.0-50.0); MEAN CORPUSCULAR HEMOGLOBIN 30.9 pg (28.0-32.0); MEAN CORPUSCULAR VOLUME 92.9 fL (81.0-99.0); MEAN PLATELET VOLUME 8.9 fl (7.4-10.4); NEUTROPHILS % 83.1 % (40.0-76.0); PLATELET 231 x1000/uL (130-400); RED BLOOD CELL COUNT 3.45 mill/uL (4.2-5.4); RED CELL DISTRIBUTION WIDTH 17.1 % (11.6-14.6)
[2021-06-19] MEDS: FAMOTIDINE 20MG TABLET PO SCH (21:00)
[2021-06-20] VITALS: BP 153/76
[2021-06-20] MEDS: ALBUTEROL 6.7GM HFA INHALER ORI SCH ×5 (00:56→23:36)
[2021-06-20 04:00] VITALS: BP 144/78
[2021-06-20 08:00] VITALS: BP 130/63
[2021-06-20] MEDS: ACETAMINOPHEN 325MG TABLET PO PRN (08:48)
[2021-06-20] MEDS: APIXABAN 2.5 MG TABLET PO SCH ×2 (08:49→17:16)
[2021-06-20] MEDS: DILTIAZEM HCL 180MG CAPSULE CD 24HR PO SCH (08:49)
[2021-06-20] MEDS: HYDROXYZINE 25MG TABLET PO SCH ×3 (08:49→17:16)
[2021-06-20] MEDS: DOCUSATE SODIUM 100MG CAPSULE PO PRN (08:49)
[2021-06-20 12:00] VITALS: BP 124/61
[2021-06-20 16:00] VITALS: BP 163/79
[2021-06-20 20:00] VITALS: BP 138/64
[2021-06-20] MEDS: FAMOTIDINE 20MG TABLET PO SCH (20:18)
[2021-06-20] MEDS: DIPHENHYDRAMINE 50MG/ML VIAL IV PRN (20:18)
[2021-06-21] MEDS: ALBUTEROL 6.7GM HFA INHALER ORI SCH ×3 (05:53→17:32)
[2021-06-21 08:00] VITALS: BP 140/67
[2021-06-21] MEDS: APIXABAN 2.5 MG TABLET PO SCH ×2 (10:13→17:31)
[2021-06-21] MEDS: DILTIAZEM HCL 180MG CAPSULE CD 24HR PO SCH (10:14)
[2021-06-21 12:00] VITALS: BP 147/91
[2021-06-21] MEDS: DILTIAZEM HCL 90MG TABLET PO SCH ×2 (14:00→21:03)
[2021-06-21] MEDS: HYDROXYZINE 25MG TABLET PO SCH ×2 (14:28→17:31)
[2021-06-21 16:00] VITALS: BP 141/76
[2021-06-21 20:00] VITALS: BP 155/56
[2021-06-21] MEDS: FAMOTIDINE 20MG TABLET PO SCH (21:03)
[2021-06-22] MEDS: ALBUTEROL 6.7GM HFA INHALER ORI SCH ×4 (00:13→18:17)
[2021-06-22 04:00] VITALS: BP 157/69
[2021-06-22] MEDS: DILTIAZEM HCL 90MG TABLET PO SCH ×3 (06:00→18:17)
[2021-06-22 08:00] VITALS: BP 141/76
[2021-06-22] MEDS: APIXABAN 2.5 MG TABLET PO SCH ×2 (10:03→18:17)
[2021-06-22] MEDS: HYDROXYZINE 25MG TABLET PO SCH ×3 (10:03→18:16)
[2021-06-22 11:05] LABS: BASOPHILS % 1.1 % (0.0-2.0); EOSINOPHILS % 3.5 % (0.0-5.0); LYMPHOCYTES % 10.7 % (20.0-50.0); MEAN CORPUSCULAR HEMOGLOBIN 31.1 pg (28.0-32.0); MEAN CORPUSCULAR VOLUME 93.4 fL (81.0-99.0); MEAN PLATELET VOLUME 8.2 fl (7.4-10.4); NEUTROPHILS % 73.7 % (40.0-76.0); PLATELET 297 x1000/uL (130-400); RED BLOOD CELL COUNT 3.53 mill/uL (4.2-5.4); RED CELL DISTRIBUTION WIDTH 16.9 % (11.6-14.6)
[2021-06-22 12:00] VITALS: BP 147/78
[2021-06-22] MEDS: ACETAMINOPHEN 325MG TABLET PO PRN (13:37)
[2021-06-22 16:00] VITALS: BP 141/62
[2021-06-22] MEDS: DOCUSATE SODIUM 100MG CAPSULE PO PRN (18:16)
[2021-06-22 20:00] VITALS: BP 138/68
[2021-06-22] MEDS: FAMOTIDINE 20MG TABLET PO SCH (21:14)
[2021-06-23] VITALS: BP 140/63
[2021-06-23] MEDS: ALBUTEROL 6.7GM HFA INHALER ORI SCH ×2 (00:30→05:43)
[2021-06-23] MEDS: DILTIAZEM HCL 90MG TABLET PO SCH ×4 (00:30→17:56)
[2021-06-23 06:00] VITALS: BP 153/67
[2021-06-23 08:00] VITALS: BP 145/87
[2021-06-23] MEDS: HYDROXYZINE 25MG TABLET PO SCH ×3 (08:29→17:56)
[2021-06-23] MEDS: APIXABAN 2.5 MG TABLET PO SCH ×2 (08:29→17:56)
[2021-06-23] MEDS: DIPHENHYDRAMINE 50MG/ML VIAL IV PRN (09:37)
[2021-06-23 11:24] LABS: BASOPHILS % 1.3 % (0.0-2.0); EOSINOPHILS % 2.2 % (0.0-5.0); HEMATOCRIT. 32.4 % (36.0-48.0); HEMOGLOBIN. 10.6 g/dL (12.0-16.0); LYMPHOCYTES % 10.7 % (20.0-50.0); MEAN CORPUSCULAR HEMOGLOBIN 30.6 pg (28.0-32.0); MEAN PLATELET VOLUME 8.2 fl (7.4-10.4); MONOCYTES % 11.1 % (2.0-8.0); NEUTROPHILS % 74.7 % (40.0-76.0); PLATELET 320 x1000/uL (130-400); RED BLOOD CELL COUNT 3.45 mill/uL (4.2-5.4); RED CELL DISTRIBUTION WIDTH 17.1 % (11.6-14.6)
[2021-06-23 12:00] VITALS: BP 145/89
[2021-06-23] MEDS ORDERED: CLONIDINE 0.1MG TABLET PO NR (13:30)
[2021-06-23 16:00] VITALS: BP 151/66
[2021-06-23 20:00] VITALS: BP 127/62
[2021-06-23] MEDS: FAMOTIDINE 20MG TABLET PO SCH (21:00)
[2021-06-24] VITALS (7 sets, daily range): BP systolic 113–138; BP diastolic 55–77
[2021-06-24] MEDS: DILTIAZEM HCL 90MG TABLET PO SCH ×4 (00:31→17:50)
[2021-06-24] MEDS: ALBUTEROL 6.7GM HFA INHALER ORI SCH ×4 (00:32→17:52)
[2021-06-24 06:15] LABS: BASOPHILS % 1.3 % (0.0-2.0); EOSINOPHILS % 1.7 % (0.0-5.0); HEMATOCRIT. 32.4 % (36.0-48.0); HEMOGLOBIN. 11.1 g/dL (12.0-16.0); LYMPHOCYTES % 13.5 % (20.0-50.0); MEAN CORPUSCULAR HEMOGLOBIN 31.8 pg (28.0-32.0); MEAN CORPUSCULAR VOLUME 92.7 fL (81.0-99.0); MEAN PLATELET VOLUME 8.2 fl (7.4-10.4); MONOCYTES % 13.8 % (2.0-8.0); NEUTROPHILS % 69.7 % (40.0-76.0); PLATELET 303 x1000/uL (130-400); RED BLOOD CELL COUNT 3.49 mill/uL (4.2-5.4); RED CELL DISTRIBUTION WIDTH 17.1 % (11.6-14.6)
[2021-06-24] MEDS: HYDROXYZINE 25MG TABLET PO SCH ×3 (08:52→17:49)
[2021-06-24] MEDS: APIXABAN 2.5 MG TABLET PO SCH ×2 (08:52→17:49)
[2021-06-24] MEDS: FAMOTIDINE 20MG TABLET PO SCH (21:07)
[2021-06-24 21:21] LABS: HEPATITIS B SURFACE ANTIGEN NEGATIVE
[2021-06-25] VITALS: BP 130/73
[2021-06-25] MEDS: DILTIAZEM HCL 90MG TABLET PO SCH ×3 (00:24→12:24)
[2021-06-25 04:00] VITALS: BP 132/63
[2021-06-25 06:19] LABS: BASOPHILS % 1.1 % (0.0-2.0); EOSINOPHILS % 2.4 % (0.0-5.0); HEMATOCRIT. 30.2 % (36.0-48.0); HEMOGLOBIN. 10.1 g/dL (12.0-16.0); LYMPHOCYTES % 14.7 % (20.0-50.0); MEAN CORPUSCULAR HEMOGLOBIN 30.9 pg (28.0-32.0); MEAN CORPUSCULAR VOLUME 92.3 fL (81.0-99.0); MEAN PLATELET VOLUME 8.1 fl (7.4-10.4); MONOCYTES % 12.5 % (2.0-8.0); NEUTROPHILS % 69.3 % (40.0-76.0); PLATELET 298 x1000/uL (130-400); RED BLOOD CELL COUNT 3.28 mill/uL (4.2-5.4); RED CELL DISTRIBUTION WIDTH 16.7 % (11.6-14.6)
[2021-06-25] MEDS: HYDROXYZINE 25MG TABLET PO SCH ×2 (07:52→12:24)
[2021-06-25] MEDS: DIPHENHYDRAMINE 50MG/ML VIAL IV PRN (07:52)
[2021-06-25] MEDS: APIXABAN 2.5 MG TABLET PO SCH (07:53)
[2021-06-25 08:00] VITALS: BP 138/67
[2021-06-25 12:00] VITALS: BP 115/58
[2021-06-25] MEDS: ALBUTEROL 6.7GM HFA INHALER ORI SCH (12:25)
== END 2021-06-25 16:25 | disposition home or self-care (01) | DRG 871 ==
LOC: ER 10:24 → EDBEDREQ 13:02 → 7EST 15:05 → EDBEDREQ 15:31 → ENRESERV 06-15 05:13 → 6WST 06-23 22:15
PROVIDERS: ADMIT Internal Medicine Pulmonary Disease; ATTEND Internal Medicine Pulmonary Disease
PROC: 5A1D70Z Performance of Urinary Filtration, Intermittent, Less than 6 Hours Per Day (ICD-10-PCS; principal; 2021-06-15)
PROC: 5A1D70Z Performance of Urinary Filtration, Intermittent, Less than 6 Hours Per Day (ICD-10-PCS; 2021-06-18)
PROC: 5A1D70Z Performance of Urinary Filtration, Intermittent, Less than 6 Hours Per Day (ICD-10-PCS; 2021-06-20)
PROC: 5A1D70Z Performance of Urinary Filtration, Intermittent, Less than 6 Hours Per Day (ICD-10-PCS; 2021-06-22)
PROC: 5A1D70Z Performance of Urinary Filtration, Intermittent, Less than 6 Hours Per Day (ICD-10-PCS; 2021-06-25)
DX: A41.89 Other specified sepsis (principal); U07.1 COVID-19; N18.6 End stage renal disease; J12.82 Pneumonia due to coronavirus disease 2019; I13.2 Hypertensive heart and chronic kidney disease with heart failure and with stage 5 chronic kidney disease, or end stage renal disease; N25.81 Secondary hyperparathyroidism of renal origin; I48.19 Other persistent atrial fibrillation; E87.1 Hypo-osmolality and hyponatremia; E44.1 Mild protein-calorie malnutrition; I42.0 Dilated cardiomyopathy; J44.1 Chronic obstructive pulmonary disease with (acute) exacerbation; J44.0 Chronic obstructive pulmonary disease with (acute) lower respiratory infection; I50.22 Chronic systolic (congestive) heart failure; E03.9 Hypothyroidism, unspecified; I27.20 Pulmonary hypertension, unspecified; I95.3 Hypotension of hemodialysis; K58.9 Irritable bowel syndrome, unspecified; R06.03 Acute respiratory distress; K21.9 Gastro-esophageal reflux disease without esophagitis; D64.9 Anemia, unspecified; F41.9 Anxiety disorder, unspecified; E87.8 Other disorders of electrolyte and fluid balance, not elsewhere classified; R09.02 Hypoxemia; Z98.51 Tubal ligation status; Z99.2 Dependence on renal dialysis; Z86.718 Personal history of other venous thrombosis and embolism; Z88.0 Allergy status to penicillin; Z79.2 Long term (current) use of antibiotics; Z79.890 Hormone replacement therapy; Z79.899 Other long term (current) drug therapy; Z68.29 Body mass index [BMI] 29.0-29.9, adult; Z79.01 Long term (current) use of anticoagulants; Z87.891 Personal history of nicotine dependence
CPT/HCPCS: 36415; 36600; 71045; 80048; 80053; 80061; 82375; 82550; 82553; 82728; 82805; 83615; 84145; 84439; 84443; 84484; 85025; 86140; 86705; 86706; 86709; 86803; 87340; 87426; 93970; 99285; J0456; J0696; J1100; J1200; J1644; J7040; J7060

== ENCOUNTER 2021-08-09 07:44 | Emergency (ER) | payer MEDICARE, MEDICAID ==
[~2021-08-09] VITALS: Ht 160 cm; Wt 61.0 kg
[2021-08-09] VITALS (11 sets, daily range): BP systolic 134–155; BP diastolic 50–65
[~2021-08-09 07:44] MED LIST changes: +DILT180T11 PO; +HYDR-459 PO
[2021-08-09 08:54] LABS: CHLORIDE 96 mEq/L (98-107)
[2021-08-09 08:55] LABS: INR 1.3; PROTHROMBIN TIME 13.5 sec (9.6-11.0)
[2021-08-09 09:11] LABS: HEMATOCRIT. 30.2 % (36.0-48.0); HEMOGLOBIN. 10.2 g/dL (12.0-16.0); MEAN CORPUSCULAR VOLUME 100.5 fL (81.0-99.0); MEAN PLATELET VOLUME 7.9 fl (7.4-10.4); PLATELET 194 x1000/uL (130-400); RED CELL DISTRIBUTION WIDTH 20.3 % (11.6-14.6)
[2021-08-09 09:40] LABS: PLATELET ESTIMATE NORMAL
[2021-08-09] MEDS ORDERED: LIDOCAINE HCL 1% 30ML VIAL (10MG/ML) ONE (11:03)
[2021-08-09] MEDS ORDERED: IOHEXOL-300 100 ML BOTTLE ONE (11:03)
[2021-08-09] MEDS ORDERED: FENTANYL CITRATE/PF 50MCG/ML 2ML VIAL ONE (11:21)
[2021-08-09] MEDS ORDERED: FENTANYL CITRATE/PF 50MCG/ML 2ML VIAL IV ONE (11:45)
== END 2021-08-09 13:21 | disposition home or self-care (01) ==
LOC: ER 07:44
DX: T82.898A Other specified complication of vascular prosthetic devices, implants and grafts, initial encounter (principal); E11.22 Type 2 diabetes mellitus with diabetic chronic kidney disease; I13.2 Hypertensive heart and chronic kidney disease with heart failure and with stage 5 chronic kidney disease, or end stage renal disease; I50.9 Heart failure, unspecified; N18.6 End stage renal disease; I48.91 Unspecified atrial fibrillation; J44.9 Chronic obstructive pulmonary disease, unspecified; K21.9 Gastro-esophageal reflux disease without esophagitis; Z20.822 Contact with and (suspected) exposure to COVID-19; Z99.2 Dependence on renal dialysis; Z79.01 Long term (current) use of anticoagulants; E03.9 Hypothyroidism, unspecified; Z98.51 Tubal ligation status; Y84.1 Kidney dialysis as the cause of abnormal reaction of the patient, or of later complication, without mention of misadventure at the time of the procedure; Y92.531 Health care provider office as the place of occurrence of the external cause
CPT/HCPCS: 36415; 36902; 80053; 85025; 85610; 87426; 96374; 99283; C1725; C1766; C1769; J1644; J3010; J3490; Q9967; 99152; 99153; G0500

== ENCOUNTER 2021-12-20 06:19 | Emergency (ER) | payer MEDICARE, MEDICAID ==
[~2021-12-20] VITALS: Ht 160 cm; Wt 61.0 kg
[2021-12-20] VITALS (12 sets, daily range): BP systolic 136–155; BP diastolic 57–73
[2021-12-20 09:09] LABS: HEMATOCRIT. 33.4 % (36.0-48.0); HEMOGLOBIN. 11.4 g/dL (12.0-16.0); MEAN CORPUSCULAR HEMOGLOBIN 34.4 pg (28.0-32.0); MEAN CORPUSCULAR VOLUME 100.9 fL (81.0-99.0); MEAN PLATELET VOLUME 8.6 fl (7.4-10.4); PLATELET 179 x1000/uL (130-400); RED BLOOD CELL COUNT 3.31 mill/uL (4.2-5.4); RED CELL DISTRIBUTION WIDTH 15.8 % (11.6-14.6)
[2021-12-20 09:14] LABS: CHLORIDE 97 mEq/L (98-107)
[2021-12-20] MEDS ORDERED: LIDOCAINE HCL 1% 10 MG/ML 10ML VIAL ONE (09:25)
[2021-12-20] MEDS ORDERED: IOHEXOL-300 100 ML BOTTLE ONE (09:25)
[2021-12-20] MEDS ORDERED: HEPARIN 1000 UNITS/ML 10ML ONE (09:25)
[2021-12-20] MEDS ORDERED: CLINDAMYCIN 600 MG PREMIX 50 ML IV NR (09:30)
[2021-12-20] MEDS ORDERED: CLINDAMYCIN 600 MG in DEXTROSE 5% WATER 50 ML IV ONE (09:30)
[2021-12-20 09:52] LABS: INR 1.2; PROTHROMBIN TIME 13.1 sec (9.6-11.0)
[2021-12-20] MEDS ORDERED: FENTANYL CITRATE/PF 50MCG/ML 2ML VIAL ONE (09:56)
[2021-12-20 10:15] LABS: PLATELET ESTIMATE NORMAL
[2021-12-20] MEDS ORDERED: FENTANYL CITRATE/PF 50MCG/ML 2ML VIAL IV ONE (10:25)
== END 2021-12-20 13:33 | disposition home or self-care (01) ==
LOC: ER 06:19
DX: T82.49XA Other complication of vascular dialysis catheter, initial encounter (principal); K21.9 Gastro-esophageal reflux disease without esophagitis; E03.9 Hypothyroidism, unspecified; J44.9 Chronic obstructive pulmonary disease, unspecified; F41.9 Anxiety disorder, unspecified; I48.91 Unspecified atrial fibrillation; I13.2 Hypertensive heart and chronic kidney disease with heart failure and with stage 5 chronic kidney disease, or end stage renal disease; N18.6 End stage renal disease; I50.9 Heart failure, unspecified; Z20.822 Contact with and (suspected) exposure to COVID-19; Z99.2 Dependence on renal dialysis; Z79.01 Long term (current) use of anticoagulants; Z98.51 Tubal ligation status; Z88.0 Allergy status to penicillin; Y84.1 Kidney dialysis as the cause of abnormal reaction of the patient, or of later complication, without mention of misadventure at the time of the procedure; Y92.018 Other place in single-family (private) house as the place of occurrence of the external cause
CPT/HCPCS: 36415; 36902; 36907; 80053; 85025; 85610; 87426; 96365; 96375; 99284; C1725; C1766; C1769; C1887; C9803; J1644; J3010; J3490; Q9967; 99152; 99153; G0500

== ENCOUNTER 2022-10-17 06:39 | Emergency (ER) | payer MEDICARE, MEDICAID ==
[~2022-10-17] VITALS: Ht 160 cm; Wt 58.5 kg
[~2022-10-17 06:39] MED LIST changes: -ALBU18HF2 IH; +ALBU18HF2 INH; +AZIT500T2 MT; -DILT180T11 PO; -LINA290C PO
[2022-10-17 08:10] LABS: HEMOGLOBIN. 11.6 g/dL (12.0-16.0); LYMPHOCYTES % 13.5 % (20.0-50.0); MEAN CORPUSCULAR HEMOGLOBIN 35.3 pg (28.0-32.0); MEAN CORPUSCULAR VOLUME 102.9 fL (81.0-99.0); MONOCYTES % 13.1 % (2.0-8.0); NEUTROPHILS % 69.4 % (40.0-76.0); PLATELET 186 x1000/uL (130-400)
[2022-10-17 08:14] LABS: CHLORIDE 98 mEq/L (98-107)
[2022-10-17 09:35] LABS: INR 1.1; PROTHROMBIN TIME 11.8 sec (9.6-11.0)
[2022-10-17 10:15] VITALS: BP 127/78
== END 2022-10-17 10:37 | disposition home or self-care (01) ==
LOC: ER 06:39 → EDBEDREQ 08:53 → EDBEDREQSVC 08:53 → EDBEDREQTM 08:53 → EDBEDREQ 08:54 → CANBEDREQ 10:11 → ER 10:37
DX: T82.590A Other mechanical complication of surgically created arteriovenous fistula, initial encounter (principal); X58.XXXA Exposure to other specified factors, initial encounter; I48.91 Unspecified atrial fibrillation; D64.9 Anemia, unspecified; F41.9 Anxiety disorder, unspecified; J44.9 Chronic obstructive pulmonary disease, unspecified; K21.9 Gastro-esophageal reflux disease without esophagitis; I10 Essential (primary) hypertension; Z79.899 Other long term (current) drug therapy; Z20.822 Contact with and (suspected) exposure to COVID-19
CPT/HCPCS: 36415; 80053; 85025; 85610; 87426; 99283; C9803

== ENCOUNTER 2022-10-22 06:59 | Emergency (ER) | payer MEDICARE, MEDICAID ==
[2022-10-22] VITALS (24 sets, daily range): BP systolic 138–159; BP diastolic 68–94
[~2022-10-22] VITALS: Ht 160 cm; Wt 58.5 kg
[2022-10-22 07:55] LABS: EOSINOPHILS % 4.2 % (0.0-5.0); HEMATOCRIT. 32.7 % (36.0-48.0); HEMOGLOBIN. 11.6 g/dL (12.0-16.0); LYMPHOCYTES % 16.3 % (20.0-50.0); MEAN CORPUSCULAR HEMOGLOBIN 36.1 pg (28.0-32.0); MEAN CORPUSCULAR VOLUME 102.1 fL (81.0-99.0); MEAN PLATELET VOLUME 8.6 fl (7.4-10.4); MONOCYTES % 13.8 % (2.0-8.0); NEUTROPHILS % 63.7 % (40.0-76.0); PLATELET 207 x1000/uL (130-400); RED CELL DISTRIBUTION WIDTH 14.6 % (11.6-14.6)
[2022-10-22 08:05] LABS: CHLORIDE 98 mEq/L (98-107)
[2022-10-22 08:06] LABS: INR 1.1; PROTHROMBIN TIME 11.9 sec (9.6-11.0)
[2022-10-22] MEDS ORDERED: LIDOCAINE HCL 1% 10 MG/ML 10ML VIAL ONE (08:38)
[2022-10-22] MEDS ORDERED: IOHEXOL-300 100 ML BOTTLE ONE (08:38)
[2022-10-22] MEDS ORDERED: HEPARIN 1000 UNITS/ML 10ML ONE (08:38)
[2022-10-22] MEDS ORDERED: LEVOFLOXACIN 500MG PREMIX 100 ML IV NR (09:00)
[2022-10-22] MEDS ORDERED: FENTANYL CITRATE/PF 50MCG/ML 2ML VIAL ONE (09:57)
[2022-10-22] MEDS ORDERED: FENTANYL CITRATE/PF 50MCG/ML 2ML VIAL IV NR (11:00)
== END 2022-10-22 11:51 | disposition home or self-care (01) ==
LOC: ER 06:59
DX: T82.590A Other mechanical complication of surgically created arteriovenous fistula, initial encounter (principal); I13.2 Hypertensive heart and chronic kidney disease with heart failure and with stage 5 chronic kidney disease, or end stage renal disease; N18.6 End stage renal disease; I50.9 Heart failure, unspecified; F41.9 Anxiety disorder, unspecified; J44.9 Chronic obstructive pulmonary disease, unspecified; K21.9 Gastro-esophageal reflux disease without esophagitis; I48.91 Unspecified atrial fibrillation; F17.210 Nicotine dependence, cigarettes, uncomplicated; Z20.822 Contact with and (suspected) exposure to COVID-19; Z99.2 Dependence on renal dialysis; Y92.89 Other specified places as the place of occurrence of the external cause
CPT/HCPCS: 36415; 36902; 36907; 76937; 80053; 85025; 85610; 87426; 96365; 99285; C1725; C1766; C1769; C9803; J1644; J1956; J3010; J3490; Q9967; 99152; 99153; G0500

== ENCOUNTER 2023-04-22 08:09 | Emergency (ER) | payer MEDICARE, MEDICAID ==
[2023-04-22] VITALS (15 sets, daily range): BP systolic 126–152; BP diastolic 54–71; PULSE 52–71; RESP 10–15; TEMP 98; O2SAT 100
[~2023-04-22] VITALS: Ht 162.6 cm; Wt 71.7 kg
[2023-04-22 09:37] LABS: BASOPHILS % 1.2 % (0.0-2.0); DIFFERENTIAL COMMENT 0; EOSINOPHILS % 3.6 % (0.0-5.0); HEMATOCRIT. 34.7 % (36.0-48.0); HEMOGLOBIN. 11.5 g/dL (12.0-16.0); LYMPHOCYTES % 13.4 % (20.0-50.0); MEAN CORPUSCULAR HEMOGLOBIN 35.3 pg (28.0-32.0); MEAN CORPUSCULAR HGB CONC 33.1 g/dL (31.0-37.0); MEAN CORPUSCULAR VOLUME 106.9 fL (81.0-99.0); MEAN PLATELET VOLUME 8.7 fl (7.4-10.4); MONOCYTES % 11.8 % (2.0-8.0); PLATELET 191 x1000/uL (130-400); RED BLOOD CELL COUNT 3.25 mill/uL (4.2-5.4); RED CELL DISTRIBUTION WIDTH 15.3 % (11.6-14.6); WHITE BLOOD COUNT 4.3 x1000/uL (4.5-11.0)
[2023-04-22 09:43] LABS: INR 1.2; PROTHROMBIN TIME 12.8 sec (9.6-11.0)
[2023-04-22 09:44] LABS: CHLORIDE 99 mEq/L (98-107); INDEX HEMOLYSI 1 (1-3); INDEX ICTERIC 1 (1-4); INDEX LIPEMIC 1 (1-3); POTASSIUM 4.2 mEq/L (3.5-5.1); SODIUM 137 mEq/L (136-145)
[2023-04-22 09:53] LABS: ALANINE AMINOTRANSFERASE 25 IU/L (13-61); ALBUMIN 3.7 g/dL (3.4-5.0); ASPARTATE AMINOTRANSFERASE 21 IU/L (15-37); BILIRUBIN TOTAL 0.5 mg/dL (0.1-1.0); CALCIUM 9.1 mg/dL (8.5-10.1); CARBON DIOXIDE 30 mEq/L (21-32); GLUCOSE 90 mg/dL (70-105); PROTEIN TOTAL 7.7 g/dL (6.0-8.3); UREA NITROGEN BLOOD 35 mg/dL (7-21)
[2023-04-22 10:26] LABS: CREATININE 8.8 mg/dL (0.6-1.3)
[2023-04-22] MEDS ORDERED: IOHEXOL-300 100 ML BOTTLE ONE (11:54)
[2023-04-22] MEDS ORDERED: HEPARIN 1000 UNITS/ML 10ML ONE (11:54)
[2023-04-22] MEDS ORDERED: LIDOCAINE HCL 1% 10 MG/ML 10ML VIAL ONE (11:54)
[2023-04-22] MEDS ORDERED: FENTANYL CITRATE/PF 50MCG/ML 2ML VIAL ONE (12:37)
[2023-04-22] MEDS ORDERED: FENTANYL CITRATE/PF 50MCG/ML 2ML VIAL IV SCH (14:00)
== END 2023-04-22 15:19 | disposition home or self-care (01) ==
LOC: ER 08:09
DX: T82.590A Other mechanical complication of surgically created arteriovenous fistula, initial encounter (principal); I11.0 Hypertensive heart disease with heart failure; I50.9 Heart failure, unspecified; J44.1 Chronic obstructive pulmonary disease with (acute) exacerbation; Z88.0 Allergy status to penicillin; Z79.899 Other long term (current) drug therapy; Z98.51 Tubal ligation status; Z98.890 Other specified postprocedural states; Z86.39 Personal history of other endocrine, nutritional and metabolic disease
CPT/HCPCS: 36901; 80053; 85025; 85610; 36415; 36907; 76937; 99283; J3010; Q9967; J1644 ×2; J3490; C1725 ×2; C1766; C1769 ×3; 99152; 99153; G0500

== ENCOUNTER 2024-09-07 07:23 | Inpatient (IN) | payer MEDICARE, MEDICAID ==
[2024-09-07] VITALS (11 sets, daily range): BP systolic 123–195; BP diastolic 54–114; PULSE 14–118; RESP 16–20; TEMP 36.2–36.6696; O2SAT 96
[~2024-09-07] VITALS: Ht 160 cm; Wt 67.2 kg
[~2024-09-07 07:23] MED LIST changes: -ALBU18HF2 INH; -AZIT500T2 MT; -CINA60 PO; +DILT-26 PO; +GABA-1180 PO; +GABA-529 PO; -HYDR-459 PO; -LEVO125T8 PO; +LEVO150T8 PO; +LINA72CA PO; -REN800 PO; -REV20 PO; +ZOLP5TAB8 PO
[2024-09-07 08:06] LABS: BASOPHILS % 1.4 % (0.0-2.0); DIFFERENTIAL COMMENT 0; EOSINOPHILS % 3.5 % (0.0-5.0); HEMATOCRIT. 36.2 % (36.0-48.0); HEMOGLOBIN. 11.9 g/dL (12.0-16.0); MEAN CORPUSCULAR HEMOGLOBIN 34.5 pg (28.0-32.0); MEAN CORPUSCULAR HGB CONC 32.9 g/dL (31.0-37.0); MEAN CORPUSCULAR VOLUME 104.8 fL (81.0-99.0); MEAN PLATELET VOLUME 9.5 fl (7.4-10.4); MONOCYTES % 7.4 % (2.0-8.0); NEUTROPHILS % 77.7 % (40.0-76.0); PLATELET 162 x1000/uL (130-400); RED BLOOD CELL COUNT 3.46 mill/uL (4.2-5.4); RED CELL DISTRIBUTION WIDTH 17.5 % (11.6-14.6); WHITE BLOOD COUNT 4.9 x1000/uL (4.5-11.0)
[2024-09-07 08:17] LABS: CHLORIDE 103 mEq/L (98-107); POTASSIUM 5.7 mEq/L (3.5-5.1); SODIUM 141 mEq/L (136-145)
[2024-09-07 08:18] LABS: CALCIUM 10.4 mg/dL (8.7-10.4); CARBON DIOXIDE 23 mEq/L (21-32)
[2024-09-07 08:23] LABS: GLUCOSE 90 mg/dL (70-105); UREA NITROGEN BLOOD 60 mg/dL (9-23)
[2024-09-07 08:31] LABS: CREATININE 9.5 mg/dL (0.6-1.0); TROPONIN I HIGH SENSITIVITY 51 ng/L (3.0-34)
[2024-09-07 11:35] LABS: TROPONIN I HIGH SENSITIVITY 46 ng/L (3.0-34)
[2024-09-07] MEDS: CALCIUM CHLORIDE 1GM/10ML SYR IV ONE (13:05)
[2024-09-07] MEDS: DEXTROSE 50% WATER 50ML SYRINGE IV ONE (13:05)
[2024-09-07] MEDS: INSULIN REGULAR (HUMULIN R) 1000UNITS/10ML VIAL IV ONE (13:07)
[2024-09-07] MEDS ORDERED: LIDOCAINE HCL 1% 10 MG/ML 10ML VIAL ONE ×3 (13:12→15:10)
[2024-09-07] MEDS ORDERED: IOHEXOL-300 50 ML BOTTLE IV ONE (14:19)
[2024-09-07] MEDS ORDERED: ACETAMINOPHEN 325MG TABLET PO PRN (14:30)
[2024-09-07] MEDS ORDERED: IPRATROPIUM/ALBUTEROL 0.5-3(2.5)MG/3ML NEB HHN PRN (14:30)
[2024-09-07] MEDS ORDERED: DOCUSATE SODIUM 100MG CAPSULE PO PRN (14:30)
[2024-09-07] MEDS ORDERED: HYDRALAZINE 20MG/ML VIAL IV PRN (14:30)
[2024-09-07] MEDS ORDERED: GUAIFENESIN 200MG/10ML SUGAR FREE UDC PO PRN (14:30)
[2024-09-07 15:27] LABS: HEPATITIS B SURFACE ANTIGEN NEGATIVE (Negative)
[2024-09-07 15:48] LABS: HEPATITIS A AB IGM NEGATIVE (Negative)
[2024-09-07 15:49] LABS: HEPATITIS B CORE AB IGM NEGATIVE (Negative); HEPATITIS C AB NON REACTIVE (Neg) (Negative)
[2024-09-07] MEDS: DILTIAZEM HCL 60MG TABLET PO SCH (16:00)
[2024-09-07] MEDS: GABAPENTIN 300MG CAPSULE PO SCH (17:00)
[2024-09-07] MEDS: MONTELUKAST SODIUM 10MG TABLET PO SCH (17:00)
[2024-09-07] MEDS: IPRATROPIUM/ALBUTEROL 0.5-3(2.5)MG/3ML NEB HHN SCH (18:00)
[2024-09-07] MEDS: LORAZEPAM 0.5MG TABLET PO PRN (18:27)
[2024-09-07 19:50] LABS: INR 1.1; PROTHROMBIN TIME 11.3 sec (9.6-11.0)
[2024-09-07] MEDS: SILDENAFIL CITRATE 20MG TABLET PO SCH (21:32)
[2024-09-08] VITALS (7 sets, daily range): BP systolic 141–170; BP diastolic 70–96; PULSE 80–122; RESP 16–21; TEMP 36.1–36.5; O2SAT 95–100
[2024-09-08] MEDS: ZOLPIDEM TARTRATE 5MG TABLET PO PRN (00:49)
[2024-09-08] MEDS: LEVOTHYROXINE SODIUM 175MCG TABLET PO SCH (06:23)
[2024-09-08] MEDS: PANTOPRAZOLE 40MG DR TABLET PO SCH (06:24)
[2024-09-08 06:36] LABS: BASOPHILS % 1.1 % (0.0-2.0); DIFFERENTIAL COMMENT 0; EOSINOPHILS % 2.7 % (0.0-5.0); HEMATOCRIT. 31.7 % (36.0-48.0); LYMPHOCYTES % 7.7 % (20.0-50.0); MEAN CORPUSCULAR HEMOGLOBIN 35.2 pg (28.0-32.0); MEAN CORPUSCULAR HGB CONC 34.7 g/dL (31.0-37.0); MEAN CORPUSCULAR VOLUME 101.5 fL (81.0-99.0); MEAN PLATELET VOLUME 9.6 fl (7.4-10.4); MONOCYTES % 8.8 % (2.0-8.0); NEUTROPHILS % 79.7 % (40.0-76.0); PLATELET 153 x1000/uL (130-400); RED BLOOD CELL COUNT 3.12 mill/uL (4.2-5.4); RED CELL DISTRIBUTION WIDTH 16.6 % (11.6-14.6); WHITE BLOOD COUNT 5.7 x1000/uL (4.5-11.0)
[2024-09-08 06:41] LABS: CARBON DIOXIDE 25 mEq/L (21-32); CHLORIDE 104 mEq/L (98-107); POTASSIUM 4.4 mEq/L (3.5-5.1); SODIUM 141 mEq/L (136-145)
[2024-09-08 06:46] LABS: GLUCOSE 84 mg/dL (70-105); IRON 66 ug/dL (50-170); TOTAL IRON BINDING CAPACITY 203 ug/dl (250-425)
[2024-09-08 06:47] LABS: ALANINE AMINOTRANSFERASE 15 IU/L (10-49); LDL CHOLESTEROL 102 mg/dL (5-100); TRIGLYCERIDE 51 mg/dL (0-150); UREA NITROGEN BLOOD 41 mg/dL (9-23)
[2024-09-08 06:48] LABS: ALBUMIN 3.7 g/dL (3.2-4.8); ASPARTATE AMINOTRANSFERASE 12 IU/L (<34); CHOLESTEROL 174 mg/dL (<200); HDL CHOLESTEROL 55 mg/dL (>65); T4 FREE 1.21 ng/dL (0.89-1.76); THYROID STIMULATING HORMONE 5.41 uIU/mL (0.55-4.78)
[2024-09-08 06:49] LABS: BILIRUBIN TOTAL 0.7 mg/dL (0.1-1.0)
[2024-09-08] MEDS ORDERED: CLINDAMYCIN 600MG PREMIX 50 ML IV NR (07:00)
[2024-09-08] MEDS ORDERED: ALTEPLASE 2MG/VIAL ITC NR (07:00)
[2024-09-08 07:01] LABS: FOLIC ACID (FOLATE) SERUM 7.81 ng/mL (>5.38); VITAMIN B12 SERUM 318 pg/mL (211-911)
[2024-09-08 07:02] LABS: FERRITIN 903 ng/mL (10-291)
[2024-09-08 07:08] LABS: CREATININE 6.5 mg/dL (0.6-1.0)
[2024-09-08] MEDS: CLINDAMYCIN 600MG PREMIX 50 ML IV NR (08:39)
[2024-09-08] MEDS ORDERED: DILTIAZEM HCL 120MG CAPSULE ER 24HR PO SCH (09:00)
[2024-09-08] MEDS ORDERED: IOHEXOL-300 100 ML BOTTLE ONE (11:06)
[2024-09-08] MEDS ORDERED: LIDOCAINE HCL 1% 10 MG/ML 10ML VIAL ONE (11:06)
[2024-09-08] MEDS ORDERED: HEPARIN 1000 UNITS/ML 10ML ONE (11:06)
[2024-09-08] MEDS ORDERED: MEPERIDINE HCL/PF 25MG/ML CPJ IV PRN (11:15)
[2024-09-08] MEDS ORDERED: HYDROMORPHONE HCL/PF 1MG/ML INJ IV PRN (11:15)
[2024-09-08] MEDS ORDERED: ONDANSETRON HCL 4MG/2ML INJ IV PRN (11:15)
[2024-09-08] MEDS ORDERED: LABETALOL 5MG/ML 4ML INJ IV PRN (11:15)
[2024-09-08] MEDS ORDERED: MIDAZOLAM HCL 2 MG/2 ML VIAL ONE ×2 (11:28→13:40)
[2024-09-08] MEDS ORDERED: FENTANYL CITRATE/PF 50MCG/ML 2ML VIAL ONE ×2 (11:28→13:40)
[2024-09-08] MEDS ORDERED: PROPOFOL 200MG/20ML VIAL IV ONE (11:28)
[2024-09-08] MEDS ORDERED: IOHEXOL-300 50 ML BOTTLE IV ONE (13:44)
[2024-09-09] VITALS (10 sets, daily range): BP systolic 109–160; BP diastolic 58–80; PULSE 72–120; RESP 18; TEMP 36.6–36.8; O2SAT 95–98
[2024-09-09 07:57] LABS: POTASSIUM 5.1 mEq/L (3.5-5.1)
[2024-09-09 07:58] LABS: CALCIUM 10.3 mg/dL (8.7-10.4)
[2024-09-09 08:06] LABS: CREATININE 8.1 mg/dL (0.6-1.0)
[2024-09-09 09:45] LABS: HEMATOCRIT. 30.5 % (36.0-48.0); HEMOGLOBIN. 10.5 g/dL (12.0-16.0); MEAN CORPUSCULAR HEMOGLOBIN 35.7 pg (28.0-32.0); MEAN CORPUSCULAR HGB CONC 34.3 g/dL (31.0-37.0); MEAN CORPUSCULAR VOLUME 104.3 fL (81.0-99.0); MEAN PLATELET VOLUME 9.9 fl (7.4-10.4); PLATELET 140 x1000/uL (130-400); RED BLOOD CELL COUNT 2.93 mill/uL (4.2-5.4); WHITE BLOOD COUNT 6.6 x1000/uL (4.5-11.0)
[2024-09-09 09:47] LABS: DIFFERENTIAL COMMENT 1
[2024-09-09] MEDS ORDERED: MONT-46 PO (12:59)
[2024-09-09] MEDS ORDERED: REV20 PO (12:59)
[2024-09-09] MEDS ORDERED: PANT40TA51 PO (12:59)
[2024-09-09] MEDS ORDERED: DILTIAZEM HCL 60MG TABLET PO SCH (14:00)
[2024-09-09 21:25] LABS: ANISOCYTOSIS 2+; PLATELET ESTIMATE NORMAL
== END 2024-09-09 13:00 | disposition home health service (06) | DRG 252 ==
LOC: ER 07:23 → 8WST 12:24 → EDBEDREQ 12:38 → EDBEDREQTM 12:38
PROVIDERS: ADMIT Hospitalist; ATTEND Hospitalist
PROC: 06H033Z Insertion of Infusion Device into Inferior Vena Cava, Percutaneous Approach (ICD-10-PCS; 2024-09-07)
PROC: B549ZZA Ultrasonography of Inferior Vena Cava, Guidance (ICD-10-PCS; 2024-09-07)
PROC: B5191ZA Fluoroscopy of Inferior Vena Cava using Low Osmolar Contrast, Guidance (ICD-10-PCS; 2024-09-07)
PROC: 5A1D70Z Performance of Urinary Filtration, Intermittent, Less than 6 Hours Per Day (ICD-10-PCS; 2024-09-07)
PROC: 03723ZZ Dilation of Innominate Artery, Percutaneous Approach (ICD-10-PCS; principal; 2024-09-08)
PROC: 03773ZZ Dilation of Right Brachial Artery, Percutaneous Approach (ICD-10-PCS; 2024-09-08)
PROC: 3E05317 Introduction of Other Thrombolytic into Peripheral Artery, Percutaneous Approach (ICD-10-PCS; 2024-09-08)
PROC: 3E03317 Introduction of Other Thrombolytic into Peripheral Vein, Percutaneous Approach (ICD-10-PCS; 2024-09-08)
PROC: B51W1ZZ Fluoroscopy of Dialysis Shunt/Fistula using Low Osmolar Contrast (ICD-10-PCS; 2024-09-08)
PROC: B5141ZZ Fluoroscopy of Left Jugular Veins using Low Osmolar Contrast (ICD-10-PCS; 2024-09-08)
PROC: 5A1D70Z Performance of Urinary Filtration, Intermittent, Less than 6 Hours Per Day (ICD-10-PCS; 2024-09-09)
DX: T82.868A Thrombosis due to vascular prosthetic devices, implants and grafts, initial encounter (principal); N18.6 End stage renal disease; I13.2 Hypertensive heart and chronic kidney disease with heart failure and with stage 5 chronic kidney disease, or end stage renal disease; I48.20 Chronic atrial fibrillation, unspecified; N25.81 Secondary hyperparathyroidism of renal origin; Z20.822 Contact with and (suspected) exposure to COVID-19; I50.9 Heart failure, unspecified; I27.20 Pulmonary hypertension, unspecified; Z99.2 Dependence on renal dialysis; D53.9 Nutritional anemia, unspecified; E87.5 Hyperkalemia; J44.9 Chronic obstructive pulmonary disease, unspecified; E03.9 Hypothyroidism, unspecified; K21.9 Gastro-esophageal reflux disease without esophagitis; F41.9 Anxiety disorder, unspecified; Z79.899 Other long term (current) drug therapy; Z86.16 Personal history of COVID-19; Z79.01 Long term (current) use of anticoagulants; Z88.0 Allergy status to penicillin; Z98.51 Tubal ligation status; Z91.158 Patient's noncompliance with renal dialysis for other reason; Z86.718 Personal history of other venous thrombosis and embolism; I95.3 Hypotension of hemodialysis; Z87.01 Personal history of pneumonia (recurrent); Y84.1 Kidney dialysis as the cause of abnormal reaction of the patient, or of later complication, without mention of misadventure at the time of the procedure; Y92.89 Other specified places as the place of occurrence of the external cause
CPT/HCPCS: 36415; 36556; 36905; 71045; 76937; 77001; 80048; 80053; 80061; 82607; 82728; 82746; 83540; 83550; 83735; 83880; 84100; 84439; 84443; 84484; 85025; 85044; 86705; 86709; 86850; 86900; 87340; 87426; 90935; 93005; 94640; 99291; A4606; C1725; C1752; C1766; C1769; C1887; J1642; J1644; J1815; J2003; J2250; J2704; J2997; J3010; J3490; Q9967

== ENCOUNTER 2024-12-22 12:28 | Inpatient (IN) | payer MEDICARE, MEDICAID ==
[~2024-12-22] VITALS: Ht 160 cm; Wt 68.5 kg
[~2024-12-22 12:28] MED LIST changes: +MONT-46 PO; +PANT40TA51 PO; +REV20 PO
[2024-12-22 14:05] LABS: BASOPHILS % 0.4 % (0.0-2.0); EOSINOPHILS % 0.6 % (0.0-5.0); HEMATOCRIT. 39.0 % (36.0-48.0); HEMOGLOBIN. 13.2 g/dL (12.0-16.0); LYMPHOCYTES % 9.1 % (20.0-50.0); MEAN PLATELET VOLUME 9.4 fl (7.4-10.4); MONOCYTES % 9.6 % (2.0-8.0); NEUTROPHILS % 80.3 % (40.0-76.0); PLATELET 159 x1000/uL (130-400); RED BLOOD CELL COUNT 3.72 mill/uL (4.2-5.4); RED CELL DISTRIBUTION WIDTH 15.6 % (11.6-14.6)
[2024-12-22 14:15] LABS: UREA NITROGEN BLOOD 63 mg/dL (9-23)
[2024-12-22 14:20] LABS: TROPONIN I HIGH SENSITIVITY 51 ng/L (3.0-34)
[2024-12-22] MEDS ORDERED: IPRATROPIUM/ALBUTEROL 0.5-3(2.5)MG/3ML NEB HHN PRN (16:00)
[2024-12-22] MEDS ORDERED: ONDANSETRON HCL 4MG/2ML INJ IV PRN (16:00)
[2024-12-22] MEDS ORDERED: ACETAMINOPHEN 325MG TABLET PO PRN (16:00)
[2024-12-22] MEDS ORDERED: DOCUSATE SODIUM 100MG CAPSULE PO PRN (16:00)
[2024-12-22 16:50] VITALS: BP 126/71; PULSE 66; RESP 18; TEMP 36.14
[2024-12-22 17:00] VITALS: BP 128/71; PULSE 66; RESP 18; TEMP 36.5; O2SAT 97
[2024-12-22] MEDS: DILTIAZEM HCL 30MG TABLET PO SCH (18:00)
[2024-12-22] MEDS: PANTOPRAZOLE SODIUM 40 MG/VIAL IV SCH (18:25)
[2024-12-22 20:00] VITALS: BP 157/71; PULSE 72; RESP 16; TEMP 36.4; O2SAT 100
[2024-12-22] MEDS ORDERED: ENOXAPARIN 30MG/0.3ML SYR SUBCUT SCH (21:00)
[2024-12-22] MEDS: GABAPENTIN 100MG CAPSULE PO SCH (21:38)
[2024-12-22] MEDS: SODIUM ZIRCONIUM CYCLOSILICATE 10GM/PACKET PO NR (21:38)
[2024-12-22] MEDS: SILDENAFIL CITRATE 20MG TABLET PO SCH (21:40)
[2024-12-22 22:26] LABS: CREATINE KINASE MB FRACTION 2.9 ng/mL (0.5-3.6)
[2024-12-22 23:04] LABS: HEPATITIS A AB IGM NEGATIVE (Negative)
[2024-12-22 23:05] LABS: HEPATITIS C AB NON REACTIVE (Neg) (Negative)
[2024-12-22 23:13] LABS: TROPONIN I HIGH SENSITIVITY 45.0 ng/L (3.0-34)
[2024-12-22 23:22] LABS: T4 FREE 1.11 ng/dL (0.89-1.76)
[2024-12-23] VITALS (12 sets, daily range): BP systolic 107–179; BP diastolic 52–98; PULSE 18–95; RESP 16–20; TEMP 36.3–36.9; O2SAT 96–99
[2024-12-23 00:11] LABS: HEPATITIS B CORE AB IGM NEGATIVE (Negative)
[2024-12-23] MEDS ORDERED: LORAZEPAM 0.5MG TABLET PO PRN (01:15)
[2024-12-23] MEDS: LORAZEPAM 0.5MG TABLET PO NR (02:06)
[2024-12-23] MEDS: HYDRALAZINE 20MG/ML VIAL IV PRN (02:06)
[2024-12-23] MEDS: ACETAMINOPHEN 325MG TABLET PO PRN (02:20)
[2024-12-23 03:01] LABS: CREATINE KINASE MB FRACTION 3.2 ng/mL (0.5-3.6)
[2024-12-23 04:33] LABS: TROPONIN I HIGH SENSITIVITY 45.0 ng/L (3.0-34)
[2024-12-23] MEDS: LEVOTHYROXINE SODIUM 175MCG TABLET PO SCH (06:21)
[2024-12-23] MEDS ORDERED: CLINDAMYCIN 600MG PREMIX 50 ML IV NR (06:45)
[2024-12-23] MEDS ORDERED: ALTEPLASE 2MG/VIAL ITC NR (06:45)
[2024-12-23 07:10] LABS: HEMATOCRIT. 37.8 % (36.0-48.0); HEMOGLOBIN. 13.0 g/dL (12.0-16.0); MEAN PLATELET VOLUME 9.4 fl (7.4-10.4); PLATELET 168 x1000/uL (130-400); RED BLOOD CELL COUNT 3.67 mill/uL (4.2-5.4); RED CELL DISTRIBUTION WIDTH 14.8 % (11.6-14.6)
[2024-12-23 07:25] LABS: INR 1.1
[2024-12-23 07:30] LABS: UREA NITROGEN BLOOD 81.0 mg/dL (9-23)
[2024-12-23 07:31] LABS: CREATINE KINASE MB FRACTION 3.0 ng/mL (0.5-3.6)
[2024-12-23 08:03] LABS: CREATININE 9.9 mg/dL (0.6-1.0)
[2024-12-23 08:05] LABS: TROPONIN I HIGH SENSITIVITY 54.0 ng/L (3.0-34)
[2024-12-23 08:54] LABS: CREATININE 8.4 mg/dL (0.6-1.0)
[2024-12-23] MEDS ORDERED: HEPARIN 1000 UNITS/ML 10ML ONE (09:06)
[2024-12-23] MEDS ORDERED: LIDOCAINE HCL 1% 10 MG/ML 10ML VIAL ONE (09:06)
[2024-12-23] MEDS: DILTIAZEM HCL 60MG TABLET PO SCH (14:00)
[2024-12-23] MEDS: SODIUM ZIRCONIUM CYCLOSILICATE 10GM/PACKET PO SCH (17:28)
[2024-12-23 17:51] LABS: BAND% 1.0 % (1.0-6.0); EOSINOPHILS % MANUAL 1.0 % (0.0-5.0); LYMPHOCYTES % MANUAL 7.0 % (20.0-60.0); MONOCYTES % MANUAL 4.0 % (2.0-8.0); NEUTROPHILS % MANUAL 87.0 % (45.0-75.0); PLATELET ESTIMATE NORMAL
[2024-12-23] MEDS: SILDENAFIL CITRATE 20MG TABLET PO SCH (22:03)
[2024-12-23] MEDS: GABAPENTIN 300MG CAPSULE PO SCH (22:04)
[2024-12-23] MEDS: LORAZEPAM 0.5MG TABLET PO PRN (22:04)
[2024-12-23] MEDS: APIXABAN 2.5 MG TABLET PO SCH (22:04)
[2024-12-24] VITALS (25 sets, daily range): BP systolic 128–171; BP diastolic 52–91; PULSE 70–87; RESP 9–18; TEMP 36–36.33624; O2SAT 90–100
[2024-12-24] MEDS: IPRATROPIUM/ALBUTEROL 0.5-3(2.5)MG/3ML NEB HHN SCH (02:34)
[2024-12-24 07:00] LABS: BASOPHILS % 0.2 % (0.0-2.0); EOSINOPHILS % 2.2 % (0.0-5.0); HEMATOCRIT. 36.9 % (36.0-48.0); HEMOGLOBIN. 12.5 g/dL (12.0-16.0); LYMPHOCYTES % 8.5 % (20.0-50.0); MEAN PLATELET VOLUME 9.4 fl (7.4-10.4); MONOCYTES % 11.1 % (2.0-8.0); NEUTROPHILS % 78.0 % (40.0-76.0); PLATELET 150 x1000/uL (130-400); RED BLOOD CELL COUNT 3.59 mill/uL (4.2-5.4); RED CELL DISTRIBUTION WIDTH 14.9 % (11.6-14.6)
[2024-12-24] MEDS ORDERED: ALTEPLASE 2MG/VIAL ITC NR (07:00)
[2024-12-24 07:22] LABS: UREA NITROGEN BLOOD 56 mg/dL (9-23)
[2024-12-24 07:24] LABS: PHOSPHORUS 5.9 mg/dL (2.5-4.9)
[2024-12-24] MEDS ORDERED: LIDOCAINE HCL 1% 10 MG/ML 10ML VIAL ONE (07:28)
[2024-12-24] MEDS ORDERED: HEPARIN 1000 UNITS/ML 10ML ONE (07:28)
[2024-12-24] MEDS ORDERED: IOHEXOL-300 100 ML BOTTLE ONE (07:29)
[2024-12-24] MEDS: CLINDAMYCIN 600MG PREMIX 50 ML IV NR (07:40)
[2024-12-24] MEDS ORDERED: FENTANYL CITRATE/PF 50MCG/ML 2ML VIAL ONE (07:49)
[2024-12-24] MEDS: FENTANYL CITRATE/PF 50MCG/ML 2ML VIAL IV ONE (07:50)
[2024-12-24 07:55] LABS: CREATININE 7.7 mg/dL (0.6-1.0)
[2024-12-25] VITALS (7 sets, daily range): BP systolic 114–137; BP diastolic 54–72; PULSE 75–88; RESP 17–20; TEMP 36.2–36.7; O2SAT 96–100
[2024-12-25 07:12] LABS: BASOPHILS % 0.4 % (0.0-2.0); EOSINOPHILS % 2.2 % (0.0-5.0); HEMATOCRIT. 36.8 % (36.0-48.0); HEMOGLOBIN. 12.6 g/dL (12.0-16.0); LYMPHOCYTES % 11.4 % (20.0-50.0); MEAN PLATELET VOLUME 9.5 fl (7.4-10.4); MONOCYTES % 12.8 % (2.0-8.0); NEUTROPHILS % 73.2 % (40.0-76.0); PLATELET 145 x1000/uL (130-400); RED BLOOD CELL COUNT 3.59 mill/uL (4.2-5.4); RED CELL DISTRIBUTION WIDTH 14.9 % (11.6-14.6)
[2024-12-25 07:27] LABS: UREA NITROGEN BLOOD 44.0 mg/dL (9-23)
[2024-12-25 07:40] LABS: CREATININE 6.3 mg/dL (0.6-1.0)
[2024-12-25] MEDS: ENOXAPARIN 80MG/0.8ML SYR SUBCUT SCH (21:19)
[2024-12-26] VITALS (7 sets, daily range): BP systolic 111–148; BP diastolic 39–74; PULSE 65–94; RESP 18; TEMP 36.7–36.8; O2SAT 95–98
[2024-12-26 08:32] LABS: BASOPHILS % 0.4 % (0.0-2.0); EOSINOPHILS % 2.6 % (0.0-5.0); HEMATOCRIT. 35.0 % (36.0-48.0); HEMOGLOBIN. 11.9 g/dL (12.0-16.0); LYMPHOCYTES % 8.2 % (20.0-50.0); MEAN PLATELET VOLUME 9.7 fl (7.4-10.4); MONOCYTES % 12.8 % (2.0-8.0); NEUTROPHILS % 76.0 % (40.0-76.0); PLATELET 131 x1000/uL (130-400); RED BLOOD CELL COUNT 3.37 mill/uL (4.2-5.4); RED CELL DISTRIBUTION WIDTH 15.3 % (11.6-14.6)
[2024-12-26 08:47] LABS: UREA NITROGEN BLOOD 62.0 mg/dL (9-23)
[2024-12-26 09:34] LABS: CREATININE 7.9 mg/dL (0.6-1.0)
[2024-12-27] VITALS (29 sets, daily range): BP systolic 110–159; BP diastolic 37–71; PULSE 61–84; RESP 8–20; TEMP 36.55848–36.9; O2SAT 98–100
[2024-12-27 07:15] LABS: BASOPHILS % 0.4 % (0.0-2.0); EOSINOPHILS % 2.9 % (0.0-5.0); HEMATOCRIT. 33.2 % (36.0-48.0); HEMOGLOBIN. 11.3 g/dL (12.0-16.0); LYMPHOCYTES % 7.9 % (20.0-50.0); MEAN PLATELET VOLUME 10.3 fl (7.4-10.4); MONOCYTES % 12.6 % (2.0-8.0); NEUTROPHILS % 76.2 % (40.0-76.0); PLATELET 142 x1000/uL (130-400); RED BLOOD CELL COUNT 3.21 mill/uL (4.2-5.4); RED CELL DISTRIBUTION WIDTH 15.3 % (11.6-14.6)
[2024-12-27 07:29] LABS: UREA NITROGEN BLOOD 78.0 mg/dL (9-23)
[2024-12-27 08:16] LABS: CREATININE 9.2 mg/dL (0.6-1.0)
[2024-12-27] MEDS ORDERED: NALOXONE HCL 0.4MG/ML VIAL IV PRN (11:15)
[2024-12-27] MEDS ORDERED: FENTANYL CITRATE/PF 50MCG/ML 2ML VIAL ONE (11:22)
[2024-12-27] MEDS ORDERED: LIDOCAINE HCL 1% 10 MG/ML 10ML VIAL ONE (11:23)
[2024-12-27] MEDS ORDERED: IOHEXOL-300 100 ML BOTTLE ONE (11:24)
[2024-12-27] MEDS: FENTANYL CITRATE/PF 50MCG/ML 2ML VIAL IV SCH (11:40)
[2024-12-27] MEDS ORDERED: ALTEPLASE 2MG/VIAL ITC SCH ×2 (12:00→14:00)
[2024-12-27] MEDS: CLINDAMYCIN 600MG PREMIX 50 ML IV SCH (12:00)
[2024-12-27] MEDS ORDERED: HEPARIN 1000 UNITS/ML 10ML ONE (12:16)
[2024-12-27 15:01] LABS: INR 1.0
[2024-12-28] VITALS: BP 117/49; PULSE 77; RESP 20; TEMP 36.9; O2SAT 100
[2024-12-28 06:57] LABS: HEMATOCRIT. 33.9 % (36.0-48.0); HEMOGLOBIN. 11.6 g/dL (12.0-16.0); MEAN PLATELET VOLUME 9.9 fl (7.4-10.4); PLATELET 146 x1000/uL (130-400); RED BLOOD CELL COUNT 3.29 mill/uL (4.2-5.4); RED CELL DISTRIBUTION WIDTH 15.6 % (11.6-14.6)
[2024-12-28 07:16] LABS: UREA NITROGEN BLOOD 59.0 mg/dL (9-23)
[2024-12-28 07:18] LABS: CREATININE 7.9 mg/dL (0.6-1.0)
[2024-12-28 08:00] VITALS: BP 104/43; PULSE 71; RESP 18; TEMP 36.5; O2SAT 99
[2024-12-28] MEDS: SODIUM ZIRCONIUM CYCLOSILICATE 10GM/PACKET PO NR (10:58)
[2024-12-28] MEDS ORDERED: DILT180C66 MT (11:57)
[2024-12-28] MEDS ORDERED: CALC667C PO (11:57)
[2024-12-28] MEDS ORDERED: SYN175 PO (11:57)
[2024-12-28 12:00] VITALS: BP 110/46; PULSE 70; RESP 18; TEMP 35.6; O2SAT 98
[2024-12-28] MEDS ORDERED: CALCIUM ACETATE 667MG CAPSULE PO SCH (12:40)
[2024-12-28 13:34] VITALS: BP 110/46; PULSE 70; TEMP 96.1
[2024-12-28 17:48] LABS: LYMPHOCYTES % MANUAL 6.0 % (20.0-60.0); MONOCYTES % MANUAL 13.0 % (2.0-8.0); NEUTROPHILS % MANUAL 81.0 % (45.0-75.0); PLATELET ESTIMATE NORMAL
== END 2024-12-28 15:54 | disposition home or self-care (01) | DRG 252 ==
LOC: ER 12:28 → 8WST 14:23 → ENRESERV 15:03
PROVIDERS: ADMIT Internal Medicine; ATTEND Hospitalist
PROC: 06H033Z Insertion of Infusion Device into Inferior Vena Cava, Percutaneous Approach (ICD-10-PCS; principal; 2024-12-23)
PROC: B5191ZA Fluoroscopy of Inferior Vena Cava using Low Osmolar Contrast, Guidance (ICD-10-PCS; 2024-12-23)
PROC: B549ZZA Ultrasonography of Inferior Vena Cava, Guidance (ICD-10-PCS; 2024-12-23)
PROC: 057Y3ZZ Dilation of Upper Vein, Percutaneous Approach (ICD-10-PCS; 2024-12-24)
PROC: B51W1ZA Fluoroscopy of Dialysis Shunt/Fistula using Low Osmolar Contrast, Guidance (ICD-10-PCS; 2024-12-24)
PROC: B51V1ZZ Fluoroscopy of Other Veins using Low Osmolar Contrast (ICD-10-PCS; 2024-12-24)
PROC: B31H1ZZ Fluoroscopy of Right Upper Extremity Arteries using Low Osmolar Contrast (ICD-10-PCS; 2024-12-24)
PROC: 037Y3ZZ Dilation of Upper Artery, Percutaneous Approach (ICD-10-PCS; 2024-12-24)
PROC: 3E03317 Introduction of Other Thrombolytic into Peripheral Vein, Percutaneous Approach (ICD-10-PCS; 2024-12-24)
PROC: B5161ZZ Fluoroscopy of Right Subclavian Vein using Low Osmolar Contrast (ICD-10-PCS; 2024-12-27)
PROC: B51V1ZZ Fluoroscopy of Other Veins using Low Osmolar Contrast (ICD-10-PCS; 2024-12-27)
PROC: B5181ZZ Fluoroscopy of Superior Vena Cava using Low Osmolar Contrast (ICD-10-PCS; 2024-12-27)
PROC: 037Y3ZZ Dilation of Upper Artery, Percutaneous Approach (ICD-10-PCS; 2024-12-27)
PROC: 057Y3ZZ Dilation of Upper Vein, Percutaneous Approach (ICD-10-PCS; 2024-12-27)
PROC: 3E03317 Introduction of Other Thrombolytic into Peripheral Vein, Percutaneous Approach (ICD-10-PCS; 2024-12-27)
DX: T82.868A Thrombosis due to vascular prosthetic devices, implants and grafts, initial encounter (principal); I21.A1 Myocardial infarction type 2; N18.6 End stage renal disease; I13.2 Hypertensive heart and chronic kidney disease with heart failure and with stage 5 chronic kidney disease, or end stage renal disease; N25.81 Secondary hyperparathyroidism of renal origin; I42.9 Cardiomyopathy, unspecified; E87.5 Hyperkalemia; F41.9 Anxiety disorder, unspecified; I27.20 Pulmonary hypertension, unspecified; K21.9 Gastro-esophageal reflux disease without esophagitis; D64.9 Anemia, unspecified; I95.3 Hypotension of hemodialysis; G62.9 Polyneuropathy, unspecified; J44.9 Chronic obstructive pulmonary disease, unspecified; E03.9 Hypothyroidism, unspecified; E83.39 Other disorders of phosphorus metabolism; I50.9 Heart failure, unspecified; Z88.0 Allergy status to penicillin; Z99.2 Dependence on renal dialysis; Z79.01 Long term (current) use of anticoagulants; Z86.718 Personal history of other venous thrombosis and embolism; Z91.199 Patient's noncompliance with other medical treatment and regimen due to unspecified reason; Z98.51 Tubal ligation status
CPT/HCPCS: 36415; 36556; 36905; 71045; 77001; 80048; 82550; 82553; 83735; 83880; 84100; 84439; 84443; 84484; 85025; 86705; 86709; 87340; 90935; 93005; 94070; 94640; 94664; 94760; 98960; 99152; 99153; 99291; A6449; C1725; C1752; C1766; C1769; J0360; J1644; J1650; J2003; J2470; J2997; J3010; J3490; Q9967; G0500

== ENCOUNTER 2025-03-09 13:10 | Emergency (ER) | payer MEDICARE, MEDICAID ==
[~2025-03-09] VITALS: Ht 162.6 cm; Wt 57.0 kg
[~2025-03-09 13:10] MED LIST changes: +CALC667C PO; -DILT-26 PO; +DILT180C66 MT; -GABA-529 PO; -LEVO150T8 PO; +SYN175 PO; +ZOLP5TAB18 PO; -ZOLP5TAB8 PO
[2025-03-09 13:12] VITALS: O2SAT 99
[2025-03-09 14:00] VITALS: TEMP 36.4
[2025-03-09 14:04] VITALS: TEMP 97.52
[2025-03-09 15:05] LABS: BASOPHILS % 0.7 % (0.0-2.0); EOSINOPHILS % 4.1 % (0.0-5.0); HEMATOCRIT. 40.4 % (36.0-48.0); HEMOGLOBIN. 14.1 g/dL (12.0-16.0); LYMPHOCYTES % 10.1 % (20.0-50.0); MEAN PLATELET VOLUME 8.6 fl (7.4-10.4); MONOCYTES % 11.1 % (2.0-8.0); NEUTROPHILS % 74.0 % (40.0-76.0); PLATELET 232 x1000/uL (130-400); RED BLOOD CELL COUNT 3.92 mill/uL (4.2-5.4); RED CELL DISTRIBUTION WIDTH 14.8 % (11.6-14.6)
[2025-03-09 15:19] LABS: UREA NITROGEN BLOOD 15 mg/dL (9-23)
[2025-03-09 15:20] LABS: ASPARTATE AMINOTRANSFERASE 17 IU/L (<34)
[2025-03-09 15:21] LABS: BILIRUBIN DIRECT 0.2 mg/dL (<=3.0); BILIRUBIN TOTAL 0.8 mg/dL (0.1-1.0); PROTEIN TOTAL 7.3 g/dL (6.0-8.3)
[2025-03-09 15:38] LABS: CREATININE 4.7 mg/dL (0.6-1.0)
[2025-03-09 16:15] VITALS: BP 147/61; PULSE 87; RESP 18; O2SAT 99
== END 2025-03-09 16:37 | disposition home or self-care (01) ==
LOC: ER 13:10 → CMPBEDREQ 18:18
DX: R41.82 Altered mental status, unspecified (principal); J45.909 Unspecified asthma, uncomplicated; Z79.01 Long term (current) use of anticoagulants; Z79.899 Other long term (current) drug therapy; Z88.0 Allergy status to penicillin; Z99.2 Dependence on renal dialysis
CPT/HCPCS: 36415; 71045; 80048; 80076; 82140; 83735; 85025; 99285; A4606

== ENCOUNTER 2025-03-31 07:30 | Inpatient (IN) | payer MEDICARE, MEDICAID ==
[2025-03-31] VITALS (24 sets, daily range): BP systolic 124–154; BP diastolic 37–77; PULSE 20–100; RESP 11–20; TEMP 35.9–36.9; O2SAT 94–100
[~2025-03-31] VITALS: Ht 160 cm; Wt 69.4 kg
[2025-03-31 08:42] LABS: HEMATOCRIT. 36.6 % (36.0-48.0); HEMOGLOBIN. 12.5 g/dL (12.0-16.0); MEAN PLATELET VOLUME 9.1 fl (7.4-10.4); PLATELET 258 x1000/uL (130-400); RED BLOOD CELL COUNT 3.59 mill/uL (4.2-5.4); RED CELL DISTRIBUTION WIDTH 14.6 % (11.6-14.6)
[2025-03-31 08:56] LABS: UREA NITROGEN BLOOD 40.0 mg/dL (9-23)
[2025-03-31 09:04] LABS: INR 1.1
[2025-03-31 09:08] LABS: CREATININE 9.4 mg/dL (0.6-1.0)
[2025-03-31] MEDS ORDERED: IOHEXOL-300 50 ML BOTTLE IV ONE (10:39)
[2025-03-31] MEDS ORDERED: LIDOCAINE HCL 1% 10 MG/ML 10ML VIAL ONE (10:39)
[2025-03-31] MEDS ORDERED: FENTANYL CITRATE/PF 50MCG/ML 2ML VIAL ONE (11:33)
[2025-03-31] MEDS ORDERED: IOHEXOL-300 100 ML BOTTLE ONE (11:34)
[2025-03-31] MEDS: FENTANYL CITRATE/PF 50MCG/ML 2ML VIAL IV ONE (11:35)
[2025-03-31] MEDS: FENTANYL CITRATE/PF 50MCG/ML 2ML VIAL IV SCH (11:50)
[2025-03-31] MEDS ORDERED: ENOXAPARIN 80MG/0.8ML SYR SUBCUT SCH (12:30)
[2025-03-31 14:14] LABS: HEPATITIS A AB IGM NEGATIVE (Negative)
[2025-03-31 14:15] LABS: HEPATITIS B CORE AB IGM NEGATIVE (Negative); HEPATITIS C AB NON REACTIVE (Neg) (Negative)
[2025-03-31 15:44] LABS: BAND% 9.0 % (1.0-6.0); EOSINOPHILS % MANUAL 10.0 % (0.0-5.0); LYMPHOCYTES % MANUAL 11.0 % (20.0-60.0); MONOCYTES % MANUAL 9.0 % (2.0-8.0); NEUTROPHILS % MANUAL 61.0 % (45.0-75.0); PLATELET ESTIMATE NORMAL
[2025-03-31] MEDS: GABAPENTIN 300MG CAPSULE PO SCH (17:00)
[2025-03-31] MEDS: LEVOTHYROXINE SODIUM 175MCG TABLET PO SCH (17:47)
[2025-03-31] MEDS: PANTOPRAZOLE 40MG DR TABLET PO SCH (17:54)
[2025-03-31] MEDS: CALCIUM ACETATE 667MG CAPSULE PO SCH (17:54)
[2025-03-31] MEDS: DILTIAZEM HCL 180MG CAPSULE ER 24HR PO SCH (17:54)
[2025-03-31] MEDS: APIXABAN 2.5 MG TABLET PO SCH (18:00)
[2025-03-31] MEDS: SILDENAFIL CITRATE 20MG TABLET PO SCH (18:00)
[2025-03-31 21:52] LABS: PHOSPHORUS 7.5 mg/dL (2.5-4.9)
[2025-03-31 23:27] LABS: T4 FREE 1.55 ng/dL (0.89-1.76)
[2025-04-01] VITALS (8 sets, daily range): BP systolic 93–132; BP diastolic 48–55; PULSE 67–89; RESP 16–22; TEMP 36.1–37.1; O2SAT 96–100
[2025-04-01] MEDS: PANTOPRAZOLE SODIUM 40 MG/VIAL IV SCH (08:35)
[2025-04-01] MEDS: IPRATROPIUM/ALBUTEROL 0.5-3(2.5)MG/3ML NEB HHN SCH (08:40)
[2025-04-02] VITALS (12 sets, daily range): BP systolic 105–142; BP diastolic 57–76; PULSE 68–110; RESP 16–28; TEMP 36.3–36.78072; O2SAT 96–100
[2025-04-02] MEDS ORDERED: ATOR20TA MT (09:39)
== END 2025-04-02 11:40 | disposition home or self-care (01) | DRG 252 ==
LOC: ER 07:30 → ENRESERV 10:26 → 7WST 15:06
PROVIDERS: ADMIT Hospitalist; ATTEND Hospitalist
PROC: 05753ZZ Dilation of Right Subclavian Vein, Percutaneous Approach (ICD-10-PCS; principal; 2025-03-31)
PROC: 057D3ZZ Dilation of Right Cephalic Vein, Percutaneous Approach (ICD-10-PCS; 2025-03-31)
PROC: B5161ZZ Fluoroscopy of Right Subclavian Vein using Low Osmolar Contrast (ICD-10-PCS; 2025-03-31)
PROC: B51N1ZZ Fluoroscopy of Left Upper Extremity Veins using Low Osmolar Contrast (ICD-10-PCS; 2025-03-31)
PROC: 5A1D70Z Performance of Urinary Filtration, Intermittent, Less than 6 Hours Per Day (ICD-10-PCS; 2025-03-31)
PROC: 5A1D70Z Performance of Urinary Filtration, Intermittent, Less than 6 Hours Per Day (ICD-10-PCS; 2025-04-02)
DX: T82.818A Embolism due to vascular prosthetic devices, implants and grafts, initial encounter (principal); N18.6 End stage renal disease; I13.2 Hypertensive heart and chronic kidney disease with heart failure and with stage 5 chronic kidney disease, or end stage renal disease; N25.81 Secondary hyperparathyroidism of renal origin; I82.891 Chronic embolism and thrombosis of other specified veins; I48.92 Unspecified atrial flutter; E11.22 Type 2 diabetes mellitus with diabetic chronic kidney disease; I48.91 Unspecified atrial fibrillation; J44.89 Other specified chronic obstructive pulmonary disease; E03.9 Hypothyroidism, unspecified; D64.9 Anemia, unspecified; K58.9 Irritable bowel syndrome, unspecified; F41.9 Anxiety disorder, unspecified; K21.9 Gastro-esophageal reflux disease without esophagitis; G62.9 Polyneuropathy, unspecified; F50.89 Other specified eating disorder; E78.5 Hyperlipidemia, unspecified; I25.10 Atherosclerotic heart disease of native coronary artery without angina pectoris; I27.20 Pulmonary hypertension, unspecified; I95.3 Hypotension of hemodialysis; I50.9 Heart failure, unspecified; Y83.2 Surgical operation with anastomosis, bypass or graft as the cause of abnormal reaction of the patient, or of later complication, without mention of misadventure at the time of the procedure; Z86.718 Personal history of other venous thrombosis and embolism; Z99.2 Dependence on renal dialysis; Z88.0 Allergy status to penicillin; Z79.01 Long term (current) use of anticoagulants
CPT/HCPCS: 36415; 36901; 80048; 83735; 84100; 84439; 84443; 85025; 86705; 86709; 87340; 90935; 93005; 93970; 94070; 94640; 94760; 96374; 99152; 99153; 99285; C1725; C1766; C1769; J1644; J2003; J2470; J3010; Q9967; G0500